=== PATIENT | female | born 1995 | race Caucasian/White ===

== ENCOUNTER 2020-10-09 22:42 | Inpatient (IN) | payer OTHER, SELFPAY ==
[2020-10-09 22:58] VITALS: BP 130/70; PULSE 100; RESP 18; TEMP 36.8; O2SAT 96; BMI 34.1
[2020-10-10] VITALS (26 sets, daily range): BP systolic 97–144; BP diastolic 42–82; PULSE 78–92; RESP 12–18; TEMP 6.1–43; O2SAT 87–99; BMI 33.2
--- NOTE | 2020-10-10 00:35 | HMH.EDNVD ---
ED Disposition Clinical Impression: Acute appendicitis Qualifiers: Acute appendicitis type: unspecified acute appendicitis type Qualified Code(s): K35.80 - Unspecified acute appendicitis Disposition: Admitted As Inpatient Condition on Discharge: Good Instructions: DI for Acute Abdominal Pain Referrals: Gino Villegas MD [Primary Care Provider] - - Critical Care Critical Care Time: No Attestation: On 10/09/20, the high probability of a clinically significant, sudden or life threatening deterioration of the following system(s) required my full and direct attention, intervention and personal management. The time I documented below is in addition to time spent performing reported procedures but includes the following listed in this critical care notation. Medical Decision Making - Medical Records Medical records reviewed: Yes: I reviewed the patient's medical records. - Markos Inquiry Pt receiving controlled substance: No Vital Signs: 10/09/20 22:58 Temperature 98.2 F Temperature Source Oral Pulse Rate [Right Brachial] 100 H Respiratory Rate 18 Blood Pressure [Right Arm] 130/70 Blood Pressure Mean [Right Arm] 90 Blood Pressure Source [Right Arm] Automatic Cuff Blood Pressure Position [Right Arm] Sitting 02 Sat by Pulse Oximetry 96 Oxygen Delivery Method Room Air - Lab Data Lab results reviewed: Yes: I reviewed the patient's lab results. Lab Results 10/10/20 00:53: Urine Color Yellow, Urine Appearance Sl cloudy, Urine pH 6.5, Ur Specific [place] 1.025, Urine Protein Trace, Urine Glucose (UA) Negative, Urine Ketones Negative, Urine Blood 2+, Urine Nitrate Negative, Urine Bilirubin Negative, Urine Urobilinogen 1.0, Ur Leukocyte Esterase Negative, Urine RBC 10-20, Ur Squamous Epith Cells 5-10, Amorphous Sediment 4+ 10/10/20 00:53: WBC 16.5 H, RBC 5.23, Hgb 15.0, Hct 45.5, MCV 87.0, MCH 28.7, MCHC 33.0, RDW 13.3, Plt Count 331, MPV 7.4, Neut % (Auto) 75.7, Lymph % (Auto) 18.5, [place] % (Auto) 3.6, Eos % (Auto) 1.9, Baso % (Auto) 0.4, Neut # (Auto) 12.5 H, Lymph # (Auto) 3.0, [place] # (Auto) 0.6, Eos # (Auto) 0.3, Baso # (Auto) 0.1, Total Counted 100, Neutrophils % (Manual) 71, Band Neutrophils % 3.0, Lymphocytes % (Manual) 21, Monocytes % (Manual) 2, Eosinophils % (Manual) 3, Platelet Estimate Normal, RBC Morphology Normal 10/10/20 00:53: Urine HCG, Qual Negative 10/10/20 00:53: Sodium 138, Potassium 4.1, Chloride 104, Carbon Dioxide 27, Anion Gap 11.1, BUN 7, Creatinine 0.40 L, Estimated Creat Clear 304 H, Estimated GFR 193, Est GFR ( Amer) 233, Glucose 95, Calcium 9.7, C-Reactive Protein 23.6 H, Amylase 68, Lipase 70 10/10/20 00:53: ESR 19 Result diagrams: 10/10/20 00:53 10/10/20 00:53 Orders (Tests/Meds): ORDERS Category Date Time Status CT abdomen wo con Stat Cat Scan 10/10/20 00:40 Taken - CT Data CT Scan: Abdomen, Pelvis Time Received: 02:[address] Reviewed: Yes: I have viewed the radiologist's interpretation Preliminary Findings: Abnormal (acute appendicitis) - Physician Consults Physician Consulted: deng Reason -: Admission Medical Decision Narrative: will need admit for acute appendicitis Nausea/Vomiting/Diarrhea HPI - General Chief complaint: Abdominal Pain Stated complaint: stomach and R Side pain Time Seen by Provider: 10/10/20 00:00 Mode of Arrival: Family Vehicle Source of Information: Patient, Medical Record Limitations: No Limitations Description of Symptoms (Recalled from ER Triage Doc. by RN): PT REPORTS HAVING HAD LEFT SIDE UPPER ABDOMINAL PAIN THAT RADATED TO RIGHT SIDE APPROXIMATELY 10 DAYS AGO THAT OCCURED A HANDFUL OF TIMES WITH NO ADDITIONAL SYMPTOMS. AFEBRILE, NO ISSUES WITH BOWELS OR BLADDER. DENIES N/V. DENIES ISSUES WITH APPETITE. DENIES VAGINAL ISSUES. NO CHANGES IN MEDS. - History of Present Illness HPI Narrative: abd pain over the last week with crampy abd pain w/o fever/ vomiting or diarrhea MD complaint: nausea, diarrhea, abdominal pain Onset (a
--- NOTE | 2020-10-10 00:40 | CT_ITS ---
PROCEDURE: CT ABDOMEN WO CON CLINICAL INDICATION: ABD PAIN Right-sided COMPARISON: No exams were available for comparison TECHNIQUE: Axial images obtained with sagittal and coronal reformats. All CT scans at the facility use one or more dose reduction, viz: automated exposure control, ma/kV adjustment per patient size (including targeted exams where dose is matched to indication, i.e. head), or iterative reconstruction technique. FINDINGS: Lower thorax: No acute finding ABDOMEN: Liver: No masses or biliary dilatation. Gallbladder: There is a 1.2 cm gallstone with peripheral calcification in a somewhat contracted gallbladder Pancreas: No masses or peripancreatic fluid collections. Spleen: unremarkable Adrenals: unremarkable Kidneys/ureters: unremarkable ABDOMEN & PELVIS: Stomach bowel: The stomach and duodenal sweep appear normal. The small bowel appears normal. There is prominent diffuse swelling of the appendix with a tiny appendicoliths. There is periappendiceal hazy inflammatory changes. There are couple of normal size lymph nodes adjacent to the cecum and appendix. Peritoneum: No abnormal fluid collections. No obvious inflammatory changes. No free air. Lymph nodes: Borderline size nodes right lower quadrant and appendix Vasculature: No evidence of abdominal aortic aneurysm. No retroperitoneal hemorrhage evident. Bones: No acute fracture PELVIS: Reproductive: The uterus is normal in size and in the midline. Bladder: Urinary bladder is decompressed, there is no free fluid in the pelvis. Appendix: Markedly abnormal as described above IMPRESSION: Findings consistent with acute appendicitis, with no evidence of perforation, cholelithiasis as well Dictated by: Dr. Sim Orosco MD 10/10/2020 09:54 Dr. Sim Orosco MD in [place] 10/10/2020 09:54
[2020-10-10 01:01] LABS: Microscopic, Urine URINE MICROSCOPIC (MICROSCOPIC)
[2020-10-10 01:04] LABS: Basophils # 0.1 K/mm3 (0-0.2); Basophils % 0.4 % (0.1-2.0); Eosinophils # 0.3 K/mm3 (0.0-0.4); Eosinophils % 1.9 % (0.1-12.0); Hematocrit 45.5 % (37.0-47.0); Lymphocytes % 18.5 % (10-50); Mean Corpuscular Hemoglobin 28.7 pg (27.0-31.2); Mean Platelet Volume 7.4 fl (7.4-10.4); Monocytes # 0.6 K/mm3 (0.1-1.0); Monocytes % 3.6 % (1.7-9.3); Neutrophils # 12.5 K/mm3 (1.8-7.8); Neutrophils % 75.7 % (37.0-80.0); Platelet Count 331 K/mm3 (142-424); Red Blood Count 5.23 M/mm3 (4.20-5.40); Red Cell Distribution Width 13.3 % (11.5-17.5); White Blood Count 16.5 K/mm3 (4.8-10.8)
[2020-10-10 01:06] LABS: Appearance,Urine SL CLOUDY (Clear); Bilirubin,Urine Negative (Negative); Blood, Urine 2+ (Negative); Color,Urine YELLOW (Yellow); Glucose,Urine (UA) Negative (Negative); Ketones,Urine Negative (Negative); Leukocyte Esterase,Urine Negative (Negative); Nitrate,Urine Negative (Negative); PH,Urine 6.5 (5.0-8.5); Protein,Urine TRACE (Negative); Specific Gravity, Urine 1.025 (1.005-1.030)
[2020-10-10 01:07] LABS: MANUAL DIFFERENTIAL MANUAL DIFFERENTIAL (MANUAL DIFF)
[2020-10-10 01:10] LABS: Amorphous Sediment,Urine 4+ /lpf; Urine Pregnancy, HCG Qual. Negative (Negative)
[2020-10-10 01:15] LABS: Chloride 104 mmol/L (98-107); Potassium 4.1 mmoL/L (3.5-5.1); Sodium 138 mmol/L (136-145)
[2020-10-10 01:18] LABS: Amylase 68 U/L (30-110); Anion Gap 11.1 mEq/L (5-15); Blood Urea Nitrogen 7 mg/dl (7-17); Carbon Dioxide 27 mmol/L (22.0-30.0); Creatinine Clearance Estimated 304 mL/min (50-200); Estimated Glomerular Filt Rate 193 ml/min (>60); GFR (African American) 233 ML/MIN (>60); Lipase 70 U/L (23-300)
[2020-10-10 01:19] LABS: Calcium 9.7 mg/dl (8.4-10.2); Glucose 95 mg/dl (74-100)
[2020-10-10 01:24] LABS: C-Reactive Protein 23.6 mg/L (0-4)
[2020-10-10 01:25] LABS: Eosinophils % 3 % (0-3); Lymphocytes % 21 % (10-50); Monocytes % 2 % (2-9); Neutrophils % 71 % (42-76); Platelet Estimate Normal; RBC Morphology Normal; Total Cells Counted 100
[2020-10-10 01:54] LABS: Erythrocyte Sedimentation Rate 19 mm/hr (0-20)
[2020-10-10 02:28] LABS: Adenovirus,PCR Not Detected (NotDetected); Bordetella Pertussis Not Detected (NotDetected); Chlamydophila Pneumoniae, PCR Not Detected (NotDetected); Coronavirus 19, PCR Not Detected (NotDetected); Coronavirus 229E Not Detected (NotDetected); Coronavirus NL63 Not Detected (NotDetected); Coronavirus OC43 Not Detected (NotDetected); Coronovirus HKU1,PCR Not Detected (NotDetected); Human Metapneumovirus Not Detected (NotDetected); Influenza A, PCR Not Detected (NotDetected); Influenza AH1, 2009 Not Detected (NotDetected); Influenza AH1, PCR Not Detected (NotDetected); Influenza AH3,PCR Not Detected (NotDetected); Influenza B, PCR Not Detected (NotDetected); Mycoplasma Pneumoniae, PCR Not Detected (NotDetected); Parainfluenza 1, PCR Not Detected (NotDetected); Parainfluenza 2, PCR Not Detected (NotDetected); Parainfluenza 3, PCR Not Detected (NotDetected); Parainfluenza 4, PCR Not Detected (NotDetected); Respiratory Syncytial Virus Not Detected (NotDetected); Rhinovirus/Enterovirus Not Detected (NotDetected)
--- NOTE | 2020-10-10 04:18 | PC.NURSE ---
PT ARRIVED TO FLOOR VIA W/C FROM ED W/STAFF AT [id number]
--- NOTE | 2020-10-10 05:44 | PC.NURSE ---
pt admitted with abd pain and appendicitis. pt requested to sleep some since she had been up all night after admission was completed. sx planned for today time unknown at this time. vss. no pain at this time. iv patent and infusing per order. call light in reach. will continue to monitor
--- NOTE | 2020-10-10 07:36 | HMH.HP ---
*Admission Date: 10/10/20 *Chief complaint: Abdominal pain *History of present illness: This is a 25-year-old female who presented to the emergency department overnight with increasing pain mostly in the right abdomen. She began having global/left-sided pain over a week ago that changed over the last few days . She was evaluated in the emergency department where she was found to be afebrile with stable normal vital signs. Her evaluation included a CT scan that showed changes consistent with appendicitis. HPI from emergency department evaluation is forwarded below. Forwarded from emergency department evaluation: Nausea/Vomiting/Diarrhea HPI - General Chief complaint: Abdominal Pain Stated complaint: stomach and R Side pain Time Seen by Provider: 10/10/20 00:00 Mode of Arrival: Family Vehicle Source of Information: Patient, Medical Record Limitations: No Limitations Description of Symptoms (Recalled from ER Triage Doc. by RN): PT REPORTS HAVING HAD LEFT SIDE UPPER ABDOMINAL PAIN THAT RADATED TO RIGHT SIDE APPROXIMATELY 10 DAYS AGO THAT OCCURED A HANDFUL OF TIMES WITH NO ADDITIONAL SYMPTOMS. AFEBRILE, NO ISSUES WITH BOWELS OR BLADDER. DENIES N/V. DENIES ISSUES WITH APPETITE. DENIES VAGINAL ISSUES. NO CHANGES IN MEDS. - History of Present Illness HPI Narrative: abd pain over the last week with crampy abd pain w/o fever/ vomiting or diarrhea MD complaint: nausea, diarrhea, abdominal pain Onset (ago): day(s) Associated Abdominal Pain: Yes Location of pain: diffuse Severity: moderate Quality: cramping Consistency: intermittent Associated symptoms: denies other symptoms [facility] History Medical History: Denies:: Diabetes Mellitus Type 1, Diabetes Mellitus Type 2 *Have you ever received a pneumonia vaccine?: No *Have you received a flu vaccine this season?: Yes Laterality Cases: Bilateral: Myringotomy (Ear Tubes) Other Surgeries: Yes: Other (d&c, wisdom teeth) Amputation: No Fractures: Yes - *Social History Smoking Status: Current every day smoker Tobacco Type: cigarettes # Packs/Day (cigarettes): 20 Alcohol Intake: never Alcohol Intake Frequency:: other Substance Use Type: denies use *Occupational Status:: employed Housing: house *Travel in the last 8 weeks: None Family Hx:: No significant family history Review of Systems - Constitutional Denies chills - Eyes Denies change in vision - ENT Denies difficulty swallowing - *Cardiovascular Denies chest pain - *Respiratory Denies cough - *Gastrointestinal Reports abdominal pain, Denies black, tarry stools - *Genitourinary Denies difficulty urinating - *Musculoskeletal Denies joint pain - Integumentary/Breasts Denies new lesions - *Neurologic Denies abnormal speech, Denies seizure-like activity - Psychiatric Denies anxiety - Endocrine Denies flushing - Hematologic/Lymphatic Denies easy bleeding - Allergic/Immunologic Denies wheezing Meds Home Medications Medication Instructions Recorded Confirmed Type etonogestrel 68 mg subdermal 68 mg SUBDERMAL NEEDED PRN 12/09/19 10/10/20 History implant Allergies Allergy/AdvReac Type Severity Reaction Status Date / Time No Known Allergies Allergy Verified 12/09/19 08:57 Exam Vital signs and Labs for Last 24 Hours: Temp Pulse Resp BP Pulse Ox 98.1 F 88 16 124/69 99 10/10/20 04:26 10/10/20 04:26 10/10/20 04:26 10/10/20 04:10/10/20 04:18 Laboratory Results - last 24 hr 10/10/20 00:53: Urine Color Yellow, Urine Appearance Sl cloudy, Urine pH 6.5, Ur Specific [place] 1.025, Urine Protein Trace, Urine Glucose (UA) Negative, Urine Ketones Negative, Urine Blood 2+, Urine Nitrate Negative, Urine Bilirubin Negative, Urine Urobilinogen 1.0, Ur Leukocyte Esterase Negative, Urine RBC 10-20, Ur Squamous Epith Cells 5-10, Amorphous Sediment 4+ 10/10/20 00:53: WBC 16.5 H, RBC 5.23, Hgb 15.0, Hct 45.5, MCV 87.0, MCH 28.7, MCHC 33.0, RDW 13.3, Plt Count 331, MPV 7.4, Neut %
--- NOTE | 2020-10-10 08:10 | HMH.ANESCL ---
[facility] Anesthesia Checklist - Patient Identification Patient Identification: Arm Band - Structural Data Admitted From: Home Planned Operative Procedure/s: Appendectomy Consent for Planned Operative Procedure(s) Verified: Yes - NPO Status Verified Time NPO: 00:00 - Airway Assessment C-Spine Mobility Assessed: Yes TMJ Mobility Assessed: Yes Dentition: Good Dentition - Neurological Assessment Level of Consciousness: Awake, Alert, Appropriate Hx Seizures: No Numbness or tingling in extremities: No - Anesthesia Plan Anesthesia Risk discussed: Yes Anesthesia Plan: Verified ASA Class: I Anesthesia Type: General [facility] History I have reviewed the patient's past medical history: Yes Medical History: Denies:: Diabetes Mellitus Type 1, Diabetes Mellitus Type 2 *Have you ever received a pneumonia vaccine?: No *Have you received a flu vaccine this season?: Yes Anesthesia experience/problems:: None Laterality Cases: Bilateral: Myringotomy (Ear Tubes) Other Surgeries: Yes: Other (d&c, wisdom teeth) Amputation: No Fractures: Yes - *Social History Smoking Status: Current every day smoker Tobacco Type: cigarettes # Packs/Day (cigarettes): 20 Alcohol Intake: never Alcohol Intake Frequency:: other Substance Use Type: denies use *Occupational Status:: employed Housing: house *Travel in the last 8 weeks: None Family Hx:: No significant family history
--- NOTE | 2020-10-10 08:37 | PC.NURSE ---
TO SURGERY AT 0832
--- NOTE | 2020-10-10 08:52 | PC.NURSE ---
at 0710, received call from dr. vilchis stating he wants to do lap appy on this pt around 8 am and requests anesthesia and or team to be notified.terry dunlap,martha marion ,and martha garvin notified.
--- NOTE | 2020-10-10 09:05 | PC.NURSE ---
Pt off floor still currently for surgery.
--- NOTE | 2020-10-10 10:32 | P.OP_ITS ---
Date of procedure: 10/10/20 Pre-op Diagnosis:: Appendicitis Post-op Diagnosis:: Suppurative appendicitis Procedure performed:: Laparoscopic appendectomy Surgeon:: Philip Singh MD Anesthesia: [facility] Estimated blood loss (mL): 25 Operative findings:: Severe suppurative appendicitis Entire appendix very inflamed and enlarged Inflammation along distal cecum Staple margin appeared viable Fusion of appendix and small bowel Fusion of appendix and colon Operative note:: After informed consent was obtained the patient was taken to the operating room and placed in the supine position. General anesthesia was induced and her abdomen was prepped and draped in a sterile fashion. After infiltration with local anesthetic an infraumbilical incision was made. A Veress needle was placed in position. The abdomen was insufflated. A 12 mm optical trocar was placed in position. Under direct visualization a 5 mm trocar was placed in the suprapubic position and an additional 5 mm trocar was placed in the left lower quadrant. The cecum, appendix, and small bowel were all inflamed. No definite perforation noted. Severe suppurative changes of the appendix with inflammation/dilation throughout were confirmed. The base of the appendix was inflamed and enlarged with concomitant inflammatory changes noted along the distal cecum. Dissection was extremely difficult as the tissue planes were obliterated secondary to the above-stated fusion of appendix to small bowel and colon. No obvious injury to the small bowel or colon was seen as careful e levation of the appendix was maintained. A combination of blunt dissection and harmonic dany was utilized to dissect through the mesoappendix and carefully separate the appendix from surrounding tissue. 2 small areas of sanguinous ooze were controlled with clips. The base of the appendix appeared viable although very inflamed/enlarged. An Endopath 45 stapling device was utilized to transect the appendix at its base. The staple margin appeared viable. No obvious sign of injury or bleeding noted. The appendix was placed in a retrieval bag and removed through the infraumbilical trocar site. The right lower quadrant and pelvis were thoroughly irrigated. No pockets of purulence were seen. The fascia at the infraumbilical trocar site was reapproximated with 0 Ethibond. All wounds were irrigated and skin was then closed with 4-0 Monocryl in a subcuticular fashion. Steri-Strips were applied. The patient's anesthetic agents were reversed and she was extubated prior to transfer to recovery. Condition: stable Disposition: PACU Specimens:: Appendix Complications:: No immediate
--- NOTE | 2020-10-10 10:44 | HMH.ANESI ---
[facility] Anesthesia Record Part I Intake, IV Amount: 1,200 Estimated blood loss (mL): 25 Urine output (mL): 150 Blood Pressure: 113/61 SaO2: 94 Pulse Rate: 90 Respiratory Rate: 14 Temperature: 97.3 F Patient is:: Drowsy Stable to PACU at:: 10:37
--- NOTE | 2020-10-10 11:18 | P.PN_ITS ---
[facility] Anesthesia Record Part II Discharge Time: 11:18 Destination: Medical Surgical Department PACU nurse assessment reviewed?: Yes Patient Condition:: Good Anesthesia Complications:: None Swallowing reflex intact?: Yes Cyanosis?: No Blood Pressure: 125/51 Pulse Rate: 88 Temperature: 94 F Mental Status: Alert & Oriented Pain level:: 0 Nausea and/or vomitting:: None Intake, IV Amount: 1,200
--- NOTE | 2020-10-10 11:23 | PC.NURSE ---
RETURNING TO FLOOR VIA STRETCHER AT 1123
[2020-10-10 11:33] LABS: Microscopic,Cath URINE MICROSCOPIC (MICROSCOPIC)
[2020-10-10 12:15] LABS: Appearance,Urine/Cath CLEAR (Clear); Bilirubin,Cath Negative (Negative); Blood, Urine/Cath 2+ (Negative); Color,Urine/Cath YELLOW (Yellow); Glucose,Urine/Cath (UA) Negative (Negative); Ketones,Urine/Cath Negative (Negative); Leukocyte Esterase,Cath Negative (Negative); Nitrate,Cath Negative (Negative); Protein,Urine/Cath 1+ (Negative); Specific Gravity, Urine/Cath 1.025 (1.005-1.030)
[2020-10-10 13:03] LABS: Amorphous Sediment,Ur/Cath 1+ /lpf; Mucus,Urine/Cath 1+ /lpf
--- NOTE | 2020-10-10 13:20 | P.CONPHA_ITS ---
[facility] Pharmacy VTE Monitoring - Patient Demographics Admission date: 10/10/20 Report Date: 10/10/20 Time: 13:20 Allergies/Adverse Reactions: Patient Allergies No Known Allergies Allergy (Verified 12/09/19 08:57) Height: 1.63 m Weight: 88.195 kg Patient Problems: Current Active Problems Acute appendicitis (Acute) - VTE Risk Labs: VTE Related Lab Results Hgb 15.0 g/dL (12.2-16.2) 10/10/20 00:53 Hct 45.5 % (37.0-47.0) 10/10/20 00:53 Plt Count 331 K/mm3 (142-424) 10/10/20 00:53 BUN 7 mg/dl (7-17) 10/10/20 00:53 Creatinine 0.40 mg/dl (0.52-1.04) L 10/10/20 00:53 Estimated Creat Clear 304 mL/min (50-200) H 10/10/20 00:53 Was VTE Risk Assessment Performed: Yes VTE Score: 0 VTE Risk Level: Very Low Risk - Prophylaxis Types of VTE Prophylaxis: TEDS Knee High (PATT HOSE ORDER PLACED) Location of Applied Device: Bilateral Lower Extremeties
--- NOTE | 2020-10-10 18:53 | PC.NURSE ---
Pt alert and oriented and able to make needs known. Pt has done well since surgery and been up to chair. Have educated on incentive spirometer. CB in reach. Surgical incisions (3) in place and cdi. 2 L NC applied post off when drowsy, pt back on ra at this time. Scuds applied to ble. S1,S2. Meds given per sep.
[2020-10-11] VITALS (7 sets, daily range): BP systolic 119–134; BP diastolic 51–71; PULSE 75–123; RESP 14–19; TEMP 36.8–39.2; O2SAT 92–98; BMI 34.0
--- NOTE | 2020-10-11 04:07 | PC.NURSE ---
Pt. has not c/o pain, n/v/d, soa or dizziness. Dsgs in place; c/d/i. Ambulates to br independently with gait and balance satisfactory.
[2020-10-11 06:28] LABS: Basophils % 0.1 % (0.1-2.0); Eosinophils % 0.1 % (0.1-12.0); Hematocrit 38.3 % (37.0-47.0); Hemoglobin 12.7 g/dL (12.2-16.2); Lymphocytes # 1.3 K/mm3 (0.7-4.5); Lymphocytes % 6.9 % (10-50); Mean Corpuscular HGB Conc 33.2 g/dL (31.8-35.4); Mean Corpuscular Hemoglobin 28.8 pg (27.0-31.2); Mean Platelet Volume 7.1 fl (7.4-10.4); Monocytes # 0.7 K/mm3 (0.1-1.0); Monocytes % 3.4 % (1.7-9.3); Neutrophils # 17.4 K/mm3 (1.8-7.8); Neutrophils % 89.5 % (37.0-80.0); Platelet Count 293 K/mm3 (142-424); Red Cell Distribution Width 13.3 % (11.5-17.5); White Blood Count 19.4 K/mm3 (4.8-10.8)
[2020-10-11 06:38] LABS: Anion Gap 9.9 mEq/L (5-15); Blood Urea Nitrogen 5 mg/dl (7-17); Carbon Dioxide 25 mmol/L (22.0-30.0); Chloride 105 mmol/L (98-107); Creatinine Clearance Estimated 243 mL/min (50-200); Estimated Glomerular Filt Rate 149 ml/min (>60); GFR (African American) 180 ML/MIN (>60); Glucose 102 mg/dl (74-100); Potassium 3.9 mmoL/L (3.5-5.1); Sodium 136 mmol/L (136-145)
[2020-10-11 07:37] LABS: MANUAL DIFFERENTIAL MANUAL DIFFERENTIAL (MANUAL DIFF)
[2020-10-11 07:41] LABS: Calcium 8.6 mg/dl (8.4-10.2)
--- NOTE | 2020-10-11 08:25 | HMH.GSPN ---
Subjective Patient reports: no new complaints, still having pain Progress Note: A&P (1) Suppurative appendicitis Status: Acute Assessment and plan: Overall, doing fairly well status post laparoscopic appendectomy. White blood cell count remains quite elevated. Continue Zosyn Full liquid diet Serial abdominal exams Exam Vital signs and Labs for Last 24 Hours: Temp Pulse Resp BP Pulse Ox 98.7 F 98 H 16 119/64 96 10/11/20 04:00 10/11/20 04:00 10/11/20 04:00 10/11/20 04:00 10/11/20 04:00 Laboratory Results - last 24 hr 10/10/20 09:00: Urine Color Yellow, Urine Appearance Clear, Urine pH 6.0, Ur Specific [place] 1.025, Urine Protein 1+, Urine Glucose (UA) Negative, Urine Ketones Negative, Urine Blood 2+, Urine Nitrate Negative, Urine Bilirubin Negative, Urine Urobilinogen 1.0, Ur Leukocyte Esterase Negative, Urine RBC 10-20, Urine WBC None, Ur Squamous Epith Cells 10-20, Urine Bacteria None 10/11/20 05:45: WBC 19.4 H, RBC 4.40, Hgb 12.7, Hct 38.3, MCV 87.0, MCH 28.8, MCHC 33.2, RDW 13.3, Plt Count 293, MPV 7.1 L, Neut % (Auto) 89.5 H, Lymph % (Auto) 6.9 L, [place] % (Auto) 3.4, Eos % (Auto) 0.1, Baso % (Auto) 0.1, Neut # (Auto) 17.4 H, Lymph # (Auto) 1.3, [place] # (Auto) 0.7, Eos # (Auto) 0.0, Baso # (Auto) 0.0 10/11/20 05:45: Sodium 136, Potassium 3.9, Chloride 105, Carbon Dioxide 25, Anion Gap 9.9, BUN 5 L D, Creatinine 0.50 L D, Estimated Creat Clear 243, Estimated GFR 149, Est GFR ( Amer) 180 D, Glucose 102 H, Calcium 8.6 D I & O for Last 24 hours: Intake & Output 10/08/20 10/09/20 10/10/20 10/11/20 11:59 11:59 11:59 11:59 Intake Total 2692 / 2692 1937 / 1937 Output Total 150 / 150 950 / 950 Balance 2542 / 2542 988 / 988 Weight 194 lb 7 oz 199 lb - Constitutional no acute distress - *Routine Respiratory Exam Absent: respiratory distress - *Routine Cardiovascular Exam Present: RRR - *Routine Abdominal Exam Present: soft, tenderness Comments: Dressings intact and dry. No cellulitis.
[2020-10-11 08:53] LABS: Lymphocytes % 17 % (10-50); Monocytes % 3 % (2-9); Neutrophils % 80 % (42-76); Platelet Estimate Normal; RBC Morphology Normal; Total Cells Counted 100
--- NOTE | 2020-10-11 16:38 | PC.NURSE ---
Addendum entered by Layla Graves RN 10/11/20 18:14: 1700 pt temp decreased to 99.4 orally. Pt has been ambulating the halls multiple times this shift w/ steady gait and balance. Pt has been using IS hourly this shift while awake. IS @ [id number] cc's Original Note: Pt has been pleasant the majority of this shift. At times, pt has been tearful d/t staying in the hospital. Pt has ran a fever of 102.5, PRN acetaminophen ordered per MD Wong. Pt has been tachy this shift as well w/ heart rate >125. Abdominal dressings remain CDI. No other acute changes or complaints at this time.
[2020-10-12] VITALS (7 sets, daily range): BP systolic 115–159; BP diastolic 68–79; PULSE 96–112; RESP 16–19; TEMP 36.8–38.4; O2SAT 92–99; BMI 34.4
--- NOTE | 2020-10-12 05:47 | PC.NURSE ---
Pt. denies dizziness and pain. Reported soa with activity and occasionally when lying flat. One episode of nausea noted; tx with zofran; effectiveness reported. Pt. tolerating blood administration well, receiving third unit at this time.
--- NOTE | 2020-10-12 05:50 | PC.NURSE ---
Pt. has not c/o pain, n/v/d, soa or dizziness this shift. Dsgs in place c/d/i. Pt. ambulates independently; tolerates well.
[2020-10-12 06:33] LABS: Basophils % 0.1 % (0.1-2.0); Eosinophils # 0.1 K/mm3 (0.0-0.4); Eosinophils % 0.3 % (0.1-12.0); Hemoglobin 12.3 g/dL (12.2-16.2); Lymphocytes # 0.9 K/mm3 (0.7-4.5); Lymphocytes % 6.2 % (10-50); Mean Corpuscular HGB Conc 33.2 g/dL (31.8-35.4); Mean Corpuscular Hemoglobin 28.7 pg (27.0-31.2); Mean Corpuscular Volume 86.5 fl (81-99); Mean Platelet Volume 7.4 fl (7.4-10.4); Monocytes # 0.5 K/mm3 (0.1-1.0); Monocytes % 3.3 % (1.7-9.3); Neutrophils # 12.5 K/mm3 (1.8-7.8); Neutrophils % 90.1 % (37.0-80.0); Platelet Count 228 K/mm3 (142-424); Red Blood Count 4.28 M/mm3 (4.20-5.40); Red Cell Distribution Width 13.4 % (11.5-17.5); White Blood Count 13.9 K/mm3 (4.8-10.8)
[2020-10-12 06:47] LABS: MANUAL DIFFERENTIAL MANUAL DIFFERENTIAL (MANUAL DIFF)
--- NOTE | 2020-10-12 06:52 | HMH.GSPN ---
Subjective Narrative: Patient states that she feels great . No issues. She did have elevated temperature to 102.5 ?F with some subsequent continued temperature elevation. She is given Tylenol for comfort and incentive spirometry encouraged. Progress Note: A&P (1) Suppurative appendicitis Status: Acute Assessment and Plan for All Diagnoses:: Continue IV antibiotics. White blood cell count is showing improvement to 13,000. Exam Vital signs and Labs for Last 24 Hours: Temp Pulse Resp BP Pulse Ox 99.7 F H 112 H 16 138/79 92 L 10/12/20 05:06 10/12/20 03:16 10/12/20 03:16 10/12/20 03:16 10/12/20 03:16 Laboratory Results - last 24 hr 10/11/20 05:45: WBC 19.4 H, RBC 4.40, Hgb 12.7, Hct 38.3, MCV 87.0, MCH 28.8, MCHC 33.2, RDW 13.3, Plt Count 293, MPV 7.1 L, Neut % (Auto) 89.5 H, Lymph % (Auto) 6.9 L, [place] % (Auto) 3.4, Eos % (Auto) 0.1, Baso % (Auto) 0.1, Neut # (Auto) 17.4 H, Lymph # (Auto) 1.3, [place] # (Auto) 0.7, Eos # (Auto) 0.0, Baso # (Auto) 0.0, Total Counted 100, Neutrophils % (Manual) 80 H, Lymphocytes % (Manual) 17, Monocytes % (Manual) 3, Platelet Estimate Normal, RBC Morphology Normal 10/11/20 05:45: Sodium 136, Potassium 3.9, Chloride 105, Carbon Dioxide 25, Anion Gap 9.9, BUN 5 L D, Creatinine 0.50 L D, Estimated Creat Clear 243, Estimated GFR 149, Est GFR ( Amer) 180 D, Glucose 102 H, Calcium 8.6 D 10/12/20 05:51: WBC 13.9 H D, RBC 4.28, Hgb 12.3, Hct 37.0, MCV 86.5, MCH 28.7, MCHC 33.2, RDW 13.4, Plt Count 228, MPV 7.4, Neut % (Auto) 90.1 H, Lymph % (Auto) 6.2 L, [place] % (Auto) 3.3, Eos % (Auto) 0.3, Baso % (Auto) 0.1, Neut # (Auto) 12.5 H, Lymph # (Auto) 0.9, [place] # (Auto) 0.5, Eos # (Auto) 0.1, Baso # (Auto) 0.0 I & O for Last 24 hours: Intake & Output 10/09/20 10/10/20 10/11/20 10/12/20 11:59 11:59 11:59 11:59 Intake Total 2692 / 2692 2538 / 2538 1080 / 1080 Output Total 150 / 150 950 / 950 Balance 2542 / 2542 1588 / 1588 1080 / 1080 Weight 194 lb 7 oz 199 lb 201 lb 8 oz - *Routine Abdominal Exam Present: soft Comments: Incisions clean without cellulitis.
[2020-10-12 08:40] LABS: Lymphocytes % 10 % (10-50); Monocytes % 3 % (2-9); Neutrophils % 87 % (42-76); Platelet Estimate Normal; RBC Morphology Normal; Total Cells Counted 100
--- NOTE | 2020-10-12 11:15 | PC.NURSE ---
Pt ambulating in the yee at this time.
--- NOTE | 2020-10-12 16:43 | PC.NURSE ---
Pt ambulating in the yee at this time.
--- NOTE | 2020-10-12 19:53 | PC.NURSE ---
Pt is A&Ox4. Lung sounds CTA. ABdomen remains distended and nontender upon palpation. Pt has not c/o any pain t/o this shift. VSS. Pt has been afebrile this shift. Pt has ambulated multiple times in the hallway this shift w/ steady gait and balance. No other acute changes or complaints at this time.
[2020-10-13 04:00] VITALS: BP 123/75; PULSE 90; RESP 18; TEMP 36.8; O2SAT 97
[2020-10-13 05:00] VITALS: BMI 33.8
[2020-10-13 06:35] LABS: Basophils % 0.2 % (0.1-2.0); Eosinophils # 0.1 K/mm3 (0.0-0.4); Eosinophils % 0.6 % (0.1-12.0); Hematocrit 36.7 % (37.0-47.0); Hemoglobin 11.9 g/dL (12.2-16.2); Lymphocytes # 1.3 K/mm3 (0.7-4.5); Lymphocytes % 15.2 % (10-50); Mean Corpuscular HGB Conc 32.4 g/dL (31.8-35.4); Mean Corpuscular Hemoglobin 28.3 pg (27.0-31.2); Mean Corpuscular Volume 87.6 fl (81-99); Monocytes # 0.5 K/mm3 (0.1-1.0); Monocytes % 6.1 % (1.7-9.3); Neutrophils # 6.5 K/mm3 (1.8-7.8); Neutrophils % 77.9 % (37.0-80.0); Platelet Count 217 K/mm3 (142-424); Red Cell Distribution Width 13.5 % (11.5-17.5); White Blood Count 8.4 K/mm3 (4.8-10.8)
--- NOTE | 2020-10-13 07:13 | P.PN_ITS ---
Subjective Patient reports: feels better, pain is less Progress Note: A&P (1) Suppurative appendicitis Status: Acute Assessment and plan: Overall, doing well status post laparoscopic appendectomy. Discharge home with close outpatient follow-up. She will complete a course of Augmentin secondary to the suppurative nature of her appendicitis. Exam Vital signs and Labs for Last 24 Hours: Temp Pulse Resp BP Pulse Ox 98.3 F 90 18 123/75 97 10/13/20 04:00 10/13/20 04:00 10/13/20 04:00 10/13/20 04:00 10/13/20 04:00 Laboratory Results - last 24 hr 10/12/20 05:51: Total Counted 100, Neutrophils % (Manual) 87 H, Lymphocytes % (Manual) 10, Monocytes % (Manual) 3, Platelet Estimate Normal, RBC Morphology Normal 10/13/20 06:18: WBC 8.4 D, RBC 4.20, Hgb 11.9 L, Hct 36.7 L, MCV 87.6, MCH 28.3, MCHC 32.4, RDW 13.5, Plt Count 217, MPV 7.0 L, Neut % (Auto) 77.9, Lymph % (Auto) 15.2, [place] % (Auto) 6.1, Eos % (Auto) 0.6, Baso % (Auto) 0.2, Neut # (Auto) 6.5, Lymph # (Auto) 1.3, [place] # (Auto) 0.5, Eos # (Auto) 0.1, Baso # (Auto) 0.0 I & O for Last 24 hours: Intake & Output 10/10/20 10/11/20 10/12/20 10/13/20 11:59 11:59 11:59 11:59 Intake Total 2692 / 2692 2538 / 2538 1320 / 1320 2029 / 2030 Output Total 150 / 150 950 / 950 801 / 801 Balance 2542 / 2542 1588 / 1588 1320 / 1320 1229 / 1229 Weight 194 lb 7 oz 199 lb 201 lb 8 oz 198 lb 2.988 oz - Constitutional no acute distress - *Routine Respiratory Exam Absent: respiratory distress - *Routine Cardiovascular Exam Present: RRR - *Routine Abdominal Exam Present: soft
--- NOTE | 2020-10-13 07:16 | HMH.DCSUM ---
General - General Admission date:: 10/10/20 Discharge date: 10/13/20 HPI HPI: This is a 25-year-old female who presented to the emergency department overnight with increasing pain mostly in the right abdomen. She began having global/left-sided pain over a week ago that changed over the last few days . She was evaluated in the emergency department where she was found to be afebrile with stable normal vital signs. Her evaluation included a CT scan that showed changes consistent with appendicitis. HPI from emergency department evaluation is forwarded below. Forwarded from emergency department evaluation: Nausea/Vomiting/Diarrhea HPI - General Chief complaint: Abdominal Pain Stated complaint: stomach and R Side pain Time Seen by Provider: 10/10/20 00:00 Mode of Arrival: Family Vehicle Source of Information: Patient, Medical Record Limitations: No Limitations Description of Symptoms (Recalled from ER Triage Doc. by RN): PT REPORTS HAVING HAD LEFT SIDE UPPER ABDOMINAL PAIN THAT RADATED TO RIGHT SIDE APPROXIMATELY 10 DAYS AGO THAT OCCURED A HANDFUL OF TIMES WITH NO ADDITIONAL SYMPTOMS. AFEBRILE, NO ISSUES WITH BOWELS OR BLADDER. DENIES N/V. DENIES ISSUES WITH APPETITE. DENIES VAGINAL ISSUES. NO CHANGES IN MEDS. - History of Present Illness HPI Narrative: abd pain over the last week with crampy abd pain w/o fever/ vomiting or diarrhea MD complaint: nausea, diarrhea, abdominal pain Onset (ago): day(s) Associated Abdominal Pain: Yes Location of pain: diffuse Severity: moderate Quality: cramping Consistency: intermittent Associated symptoms: denies other symptoms Hospital Course Hospital Course: The patient underwent laparoscopic appendectomy. Please see operative report for detail. She was found to have suppurative appendicitis with fairly severe cecal and small bowel inflammatory changes. She was maintained on Zosyn postoperatively secondary to the above findings. Her diet was slowly advanced. She was ambulating without difficulty. By postoperative day 3 she was deemed appropriate for discharge with close outpatient follow-up. At the time of discharge she was afebrile with stable and normal vital signs. Her white blood cell count was normal. She will complete a course of Augmentin secondary to the suppurative nature of her appendicitis. Objective Vital signs: Temp Pulse Resp BP Pulse Ox 98.3 F 90 18 123/75 97 10/13/20 04:00 10/13/20 04:00 10/13/20 04:00 10/13/20 04:00 10/13/20 04:00 no acute distress - *Routine HEENT Exam Head: Present: normocephalic Eye: Present: EOMI ENT: Present: mucous membranes moist - *Routine Neck Exam Present: full ROM - Routine Chest/Breast/Axilla Exam Chest wall: Absent: tenderness - *Routine Respiratory Exam Absent: respiratory distress - *Routine Cardiovascular Exam Present: RRR - *Routine Abdominal Exam Present: soft - *Routine Rectal Exam Patient deferred: visual exam - *Routine Exam Patient deferred: external exam - *Routine Extremities Exam Present: full ROM. Absent: cyanosis, clubbing, edema - Routine Back/Spine/Pelvis Exam Back/Spine: Present: full ROM - *Routine Skin Exam Absent: erythema - *Routine Neurological Exam Present: alert - Routine Psychiatric Exam Present: normal affect Results Labs on day of discharge: Labs from last 24 hours 10/13/20 10/12/20 06:18 05:51 WBC 8.4 D RBC 4.20 Hgb 11.9 L Hct 36.7 L MCV 87.6 MCH 28.3 MCHC 32.4 RDW 13.5 Plt Count 217 MPV 7.0 L Neut % (Auto) 77.9 Lymph % (Auto) 15.2 [place] % (Auto) 6.1 Eos % (Auto) 0.6 Baso % (Auto) 0.2 Neut # (Auto) 6.5 Lymph # (Auto) 1.3 [place] # (Auto) 0.5 Eos # (Auto) 0.1 Baso # (Auto) 0.0 Total Counted 100 Neutrophils % (Manual) 87 H Lymphocytes % (Manual) 10 Monocytes % (Manual) 3 Platelet Estimate Normal RBC Morphology Normal DS: Diagnosis - Discharge Diagnosis
[2020-10-13 08:00] VITALS: BP 124/61; PULSE 86; RESP 16; TEMP 37; O2SAT 96
== END 2020-10-13 08:45 | disposition home or self-care (01) | DRG 343 ==
LOC: ER 10-10 02:09 → 2ND 10-10 03:46
PROVIDERS: Surgery; Admitting Provider Surgery; Emergency Provider Emergency Medicine; PCP Family Medicine; Visit Provider Surgery
PROC: 0DTJ4ZZ Resection of Appendix, Percutaneous Endoscopic Approach (ICD-10-PCS; CPT 44970; principal; 2020-10-10 08:30)
DX: K35.80 Unspecified acute appendicitis (principal); F17.210 Nicotine dependence, cigarettes, uncomplicated
CPT/HCPCS: 44970; 36415; 74150; 80048; 81001; 81025; 82150; 83690; 85007; 85025; 85651; 86140; 87581; 87633; 87798; 88304; 88312; 88342; 96365; 99284; J0131; J2405; J2543

== ENCOUNTER → 2021-01-26 10:29 | Outpatient (CLI) | payer OTHER, SELFPAY ==
[2021-01-28 15:16] LABS: 5-HIAA, Urine 4.4 mg/L (Undefined)
[2021-02-04 09:31] LABS: Chromogranin A 24.7
== END ==
PROVIDERS: Visit Provider Surgery
DX: D3A.020 Benign carcinoid tumor of the appendix (principal)
CPT/HCPCS: 36415; 83497; 83520

== ENCOUNTER → 2021-07-27 17:20 | Outpatient (CLI) | payer OTHER, SELFPAY | PROVIDERS: Visit Provider Nurse Practitioner | DX: Z20.822 Contact with and (suspected) exposure to COVID-19 (principal) | CPT/HCPCS: C9803; U0003; U0005 ==

== ENCOUNTER 2022-11-29 08:07 | Emergency (ER) | payer OTHER, SELFPAY ==
[2022-11-29 08:18] VITALS: BP 143/91; PULSE 93; RESP 18; TEMP 36.9; O2SAT 98; BMI 35.0
--- NOTE | 2022-11-29 08:21 | EXP.UTC ---
Discharge Plan Disposition Patient Disposition: Home, Self-Care Condition: Good Prescriptions Prescriptions: New triamcinolone acetonide 0.1 % cream 1 applic topical BID Qty: 60 0RF Rx Instructions: apply to rash on back of legs methylprednisolone [Medrol (Alex)] 4 mg tablets,dose pack See Rx Instructions .Route .COMPLEX 6 Days Qty: 21 0RF Rx Instructions: taper pack; No Action Nexplanon 68 mg implant 68 mg SUBDERMAL NEEDED PRN (Reason: control) Referrals Follow up/Referrals: Bentley Nieto MD [Primary Care Provider] - See instructions Activity Restrictions/Add. Instructions Additional Instructions/Restrictions: Oral antihistamines may help with itching associated with rash Use topical cream as prescribed for rash Follow up with your Family Doctor or Dermatology if no improvement or any worsening of symptoms Return if needed Avoid the tanning bed Clinical Impressions Clinical Impression: Rash and nonspecific skin eruption Instructions Patient Instructions: DI for Atopic Dermatitis-Adult, DI for Rash Discharge ED Provider: Sosa Quinones [facility] HPI General Stated complaint: Rash on back of legs Mode of Arrival: Ambulatory Source of Information: Patient Limitations: No Limitations Time Seen by Provider: 11/29/22 08:22 Description of Symptoms (Recalled from Triage Doc. by RN): pt c/o a rash that gandhi. pt states this has been going on for 2wks after she used a tanning bed. HEENT Symptoms (Recalled from RN notes): No Resp Symptoms (Recalled from RN notes): No Skin Symptoms (Recalled from RN notes): Yes MS Symptoms (Recalled from RN notes): No Functional Status (Recalled from RN notes): wnl History of Present Illness Provider Complaint: Patient states that she has been laying in the tanning bed States that she developed a rash on her abdomen and back of legs shortly after starting to lay in the tanning bed and has continued for about 2 weeks States that the rash is itchy and when she scratches it sometimes it will burn Related Data Home Medications Medication Instructions Recorded Confirmed etonogestrel 68 mg subdermal 68 mg subdermal NEEDED PRN 12/09/19 05/08/22 implant (Nexplanon) control Previous Rx's Medication Instructions Recorded methylprednisolone 4 mg tablets in See Rx Instructions .Route 11/29/22 a dose pack (Medrol (Alex)) .COMPLEX 6 days #21 tabs triamcinolone acetonide 0.1 % 1 applic topical BID #60 grams 11/29/22 topical cream Allergies Allergy/AdvReac Type Severity Reaction Status Date / Time No Known Allergies Allergy Verified 11/29/22 08:21 Worker's Comp Is this a Worker's Comp case?: No [facility] Disclaimer: The information contained in this section may have been updated after the patient was seen, as this information can be updated by other users. Social History Smoking Status: Current every day smoker tobacco type: cigarettes packs per day: 20 second hand exposure: Yes alcohol intake: never substance use type: denies use current occupational status: employed Travel in the last 8 weeks: None housing: house ROS Obtained: Yes All systems reviewed & no additional complaints except as documented and Yes Systems reviewed as appropriate & no additional complaints except as documented Eyes Eyes: Reports system reviewed and no additional complaints, except as documented and Reports as per HPI ENT Ears, Nose, Mouth, and Throat: Reports system reviewed and no additional complaints, except as documented and Reports as per HPI Cardiovascular Cardiovascular: Reports system reviewed and no additional complaints, except as documented and Reports as per HPI Respiratory Respiratory: Reports system reviewed and no additional complaints, except as documented and Reports as per HPI Gastrointestinal Gastrointestingal: Reports system reviewed and no additional complaints
[2022-11-29 08:23] VITALS: BP 143/91; PULSE 93; RESP 18; TEMP 36.9
== END 2022-11-29 08:46 | disposition home or self-care (01) ==
PROVIDERS: Emergency Provider Nurse Practitioner; PCP Family Medicine
DX: R21 Rash and other nonspecific skin eruption (principal); F17.210 Nicotine dependence, cigarettes, uncomplicated
CPT/HCPCS: 99204; 99212; G0463

== ENCOUNTER 2023-03-14 08:35 | Emergency (ER) | payer OTHER, SELFPAY ==
[2023-03-14 09:23] VITALS: BP 105/76; PULSE 78; RESP 18; TEMP 36.8; O2SAT 99; BMI 34.5
--- NOTE | 2023-03-14 09:30 | EXP.UTC ---
Discharge Plan Disposition Patient Disposition: Home, Self-Care Condition: Good Prescriptions Prescriptions: New pseudoephedrine HCl [Sudafed 12 Hour] 120 mg tablet extended release 120 mg PO Q12H PRN (Reason: nasal congestion) Qty: 20 0RF No Action Nexplanon 68 mg implant 68 mg SUBDERMAL NEEDED PRN (Reason: control) triamcinolone acetonide 0.1 % cream 1 applic topical BID Qty: 60 0RF Rx Instructions: apply to rash on back of legs Referrals Follow up/Referrals: Bentley Nieto MD [Primary Care Provider] - See instructions Activity Restrictions/Add. Instructions Additional Instructions/Restrictions: *Monitor Temp, Over the counter Motrin or Tylenol as directed/as needed Tylenol every 4 hours and Motrin every 6 hours (as long as your family doctor has told you that you can take it) for fever or pain. and straight to ER if unable to lower temp less than 101.0 after medication given *Warm salt water gargles may help to soothe the throat *Throat Lozenges? *Warm fluids like tea with honey may help to soothe the throat? *Sleep elevated Over the counter sudafed may help with nasal congestion *Humidifier/Vaporizer *Flonase 2 sprays in each nostril daily but be aware that it may take 2-3 days before you notice improvement *Bromfed may cause drowsiness. Know how it effects you (your child) before driving, caring for small child, or sending your child to school. Not other antihistamines/allergy medications while taking bromfed Your throat swab was sent for culture. Those results are typically sent to your primary care. Be sure to follow up in 2-3 days with your family doctor/primary care physician if no improvement so they can review those result and treat if necessary. If you don?t have a primary care doctor, I recommend you get one but in the mean time, you will have to return to a walk in clinic Follow up IMMEDIATELY for new or worsening symptoms or no Noticeable improvement over the next 48-72 hours. 911 for difficulty breathing or swallowing Clinical Impressions Clinical Impression: Viral upper respiratory infection Instructions Patient Instructions: DI for Viral Upper Respiratory Infection -- Adult Discharge ED Provider: Sosa QuinonesH [facility] HPI General Stated complaint: sore throat, congestion, covid test Mode of Arrival: Ambulatory Source of Information: Patient Limitations: No Limitations Time Seen by Provider: 03/14/23 09:30 Description of Symptoms (Recalled from Triage Doc. by RN): Patient reports a stuffy nose since yesterday. HEENT Symptoms (Recalled from RN notes): Yes Resp Symptoms (Recalled from RN notes): No Skin Symptoms (Recalled from RN notes): No MS Symptoms (Recalled from RN notes): No Functional Status (Recalled from RN notes): wnl History of Present Illness Provider Complaint: Patient states that she has been having stuffy nose since yesterday Denies fever, denies chills states that at times her throat feels a little scratchy States that she hasnt been exposed to COVID that she knows of but wants to get tested Related Data Home Medications Medication Instructions Recorded Confirmed etonogestrel 68 mg subdermal 68 mg subdermal NEEDED PRN 12/09/19 01/18/23 implant (Nexplanon) control Previous Rx's Medication Instructions Recorded triamcinolone acetonide 0.1 % 1 applic topical BID #60 grams 11/29/22 topical cream pseudoephedrine HCl 120 mg 120 mg PO Q12H PRN nasal 03/14/23 tablet,extended release (Sudafed congestion #20 tabs 12 Hour) Allergies Allergy/AdvReac Type Severity Reaction Status Date / Time No Known Allergies Allergy Verified 01/18/23 08:40 Worker's Comp Is this a Worker's Comp case?: No [facility] Disclaimer: The information contained in this section may have been updated after the patient was seen, as this information can be updated by other users. Medical History (Updated
[2023-03-14 09:36] LABS: Coronavirus 19, PCR Not Detected (NotDetected); Influenza A, PCR Not Detected (NotDetected); Influenza B, PCR Not Detected (NotDetected)
[2023-03-14 10:55] VITALS: BP 105/76; PULSE 78; RESP 18; TEMP 36.8; O2SAT 99
== END 2023-03-14 10:55 | disposition home or self-care (01) ==
PROVIDERS: Emergency Provider Nurse Practitioner; PCP Family Medicine
DX: J06.9 Acute upper respiratory infection, unspecified (principal); B34.9 Viral infection, unspecified; F17.210 Nicotine dependence, cigarettes, uncomplicated
CPT/HCPCS: 87636; 99212; 99214; G0463

== ENCOUNTER 2023-12-14 16:28 | Emergency (ER) | payer OTHER, SELFPAY ==
[2023-12-14 16:41] VITALS: BP 135/71; PULSE 69; RESP 16; TEMP 36.7; O2SAT 98; BMI 34.3
--- NOTE | 2023-12-14 16:43 | XR_ITS ---
PROCEDURE INFORMATION: Exam: XR Right Foot Exam date and time: 12/14/2023 4:49 PM Age: 28 years old Clinical indication: Pain; Toes; Right; Additional info: Pain with walking TECHNIQUE: Imaging protocol: Radiologic exam of the right foot. Views: 3 or more views. COMPARISON: No relevant prior studies available. FINDINGS: Bones/joints: There is a dorsal calcaneal enthesophyte. The osseous structures appear intact with no evidence of acute fracture, dislocation, or malalignment. Joint spaces are preserved. No abnormal bone density or destructive lesions are noted. Soft tissues: Soft tissues appear unremarkable. IMPRESSION: At the time of imaging, there is no evidence for acute osseous abnormalities.
--- NOTE | 2023-12-14 16:44 | EXP.UTC ---
Discharge Plan Disposition Patient Disposition: Home, Self-Care Condition: Good Prescriptions Prescriptions: New ibuprofen [IBU] 800 mg tablet 800 mg PO Q8HP PRN (Reason: Moderate Pain) Qty: 30 0RF No Action Nexplanon 68 mg implant 68 mg SUBDERMAL NEEDED PRN (Reason: control) ciprofloxacin HCl 250 mg tablet 250 mg PO BID 3 Days Qty: 6 0RF Referrals Follow up/Referrals: Bentley Nieto MD [Primary Care Provider] - See instructions Tomasa Muñoz DPM [Staff Physician] - See instructions Activity Restrictions/Add. Instructions Additional Instructions/Restrictions: Rest the extremity, Elevate the extremity as tolerated while you are resting. Take ibuprofen for pain. I sent in a prescription to your pharmacy. Follow up with Dr. Muñoz (podiatry) I put in a referral but you need to call her office and schedule an appointment. Follow up with your regular doctor. GO TO THE ER FOR ANY WORSENING SYMPTOMS Clinical Impressions Clinical Impression: Acute pain of right foot Instructions Patient Instructions: DI for Metatarsalgia, DI for Foot Pain, Ibuprofen Discharge ED Provider: Heriberto Bonds [facility] General Stated complaint: Right foot pain no injury Mode of Arrival: Ambulatory Source of Information: Patient Limitations: No Limitations Time Seen by Provider: 12/14/23 16:44 HEENT Symptoms (Recalled from RN notes): No Resp Symptoms (Recalled from RN notes): No Skin Symptoms (Recalled from RN notes): No MS Symptoms (Recalled from RN notes): Yes Functional Status (Recalled from RN notes): wnl History of Present Illness Provider Complaint: Patient complaint of right foot pain when she walks or runs for 1 month. Related Data Home Medications Medication Instructions Recorded Confirmed etonogestrel 68 mg subdermal 68 mg subdermal NEEDED PRN 12/09/19 11/05/23 implant (Nexplanon) control Previous Rx's Medication Instructions Recorded ciprofloxacin HCl 250 mg tablet 250 mg PO BID 3 days #6 tabs 11/08/23 ibuprofen 800 mg tablet (IBU) 800 mg PO Q8HP PRN Moderate Pain 12/14/23 #30 tabs Allergies Allergy/AdvReac Type Severity Reaction Status Date / Time No Known Allergies Allergy Verified 11/05/23 13:21 Worker's Comp Is this a Worker's Comp case?: No [facility] Disclaimer: The information contained in this section may have been updated after the patient was seen, as this information can be updated by other users. Medical History (Updated 12/14/23 @ 17:21 by Heriberto Bonds APRN) Abdominal pain, acute No significant past medical history Surgical History History of placement of ear tubes H/O elbow surgery Hx of appendectomy Family History Father Hypertension Social History Smoking Status: Current every day smoker tobacco type: cigarettes packs per day: 20 second hand exposure: Yes alcohol intake: never substance use type: denies use current occupational status: employed Travel in the last 8 weeks: None housing: house ROS Obtained: Yes All systems reviewed & no additional complaints except as documented Constitutional Constitutional: Denies chills and Denies fever(s) Eyes Eyes: Denies eye discharge ENT Ears, Nose, Mouth, and Throat: Denies dizziness, Denies otalgia and Denies sore throat Cardiovascular Cardiovascular: Denies chest pain Respiratory Respiratory: Denies shortness of breath, Denies chest congestion, Denies cough, Denies stridor and Denies wheezing Gastrointestinal Gastrointestingal: Denies nausea or vomiting Musculoskeletal Musculoskeletal: Reports as per HPI Integumentary/Breasts Skin/Breast: Denies redness, Denies rash and Denies wounds Neurologic Neurologic: Denies dizziness and Denies paresthesias Allergic/Immunologic Allergic/Immunologic: Denies wheezing Physical Exam General General appearance: alert and in no apparent distress Head Head exam: atraumatic, normocephalic and normal inspection Eye Eye exam: Present normal appearance, PERRL and EOMI ENT ENT exam: Present normal exam, normal oropharynx, mucous membranes moist, TM's normal bilaterally and normal external ear exam Neck Neck exam: Present normal inspection, full ROM and trachea midline; Absent meningismus or lymphadenopathy Chest Chest inspection: Present normal inspection and symmetric chest wall rise; Absent tenderness Respiratory Respiratory exam: Present normal lung sounds bilaterally; Absent respiratory distress Cardiovascular Cardiovascular exam: Present regular rate and normal rhythm; Absent JVD Abdominal Exam Abdominal exam: Present soft and normal bowel sounds; Absent distention, tenderness or guarding Extremities Exam Extremities exam: Present normal capillary refill; Absent calf tenderness Expanded Lower Extremity Exam Right: Knee exam: Present normal inspection, full ROM and knee extension intact; Absent tenderness Lower leg exam: Present normal inspection, full ROM and Achilles tendon intact; Absent tenderness or Homans' sign Ankle exam: Present normal inspection and full ROM; Absent tenderness Foot/toe exam: Present normal inspection and full ROM; Absent tenderness Neurovascular/Tendon exam: Present normal capillary refill, normal 2-point discrimination and normal fine/light touch; Absent pulse deficit, motor deficit, sensory deficit, tendon deficit, extremity cold to touch or pallor Gait: observed and normal Back Exam Back exam: Present normal inspection; Absent tenderness Neurological Exam Neurological exam: Present alert and oriented X3 Psychiatric Psychiatric exam: Present normal affect and normal mood Skin Skin exam: Present warm, dry, intact and normal color Lymphatic Lymphatic Findings: no adenopathy Medical Decision Making Medical Records Medical records reviewed: No I reviewed the patient's medical records. Markos Inquiry Pt receiving controlled substance: No Vital Signs: 12/14/23 16:41 Temperature 98.0 F Temperature Source Oral Pulse Rate [Radial] 69 Respiratory Rate 16 Blood Pressure [Right Arm] 135/71 Blood Pressure Mean [Right Arm] 92 Blood Pressure Source [Right Arm] Automatic Cuff Blood Pressure Position [Right Arm] Sitting 02 Sat by Pulse Oximetry 98 Oxygen Delivery Method Room Air Orders (Tests/Meds): ORDERS Category Date Time Status Foot XR right minimum 3 views [XR foot RT min 3V] Stat Exams 12/14/23 16:43 Ordered
[2023-12-14 17:28] VITALS: BP 135/71; PULSE 69; RESP 16; TEMP 36.7; O2SAT 98
== END 2023-12-14 17:29 | disposition home or self-care (01) ==
PROVIDERS: Emergency Provider Nurse Practitioner Family; PCP Family Medicine
DX: M79.671 Pain in right foot (principal)
CPT/HCPCS: 73630; 99212; 99214; G0463

== ENCOUNTER 2024-09-29 08:02 | Outpatient (CLI) | payer OTHER, SELFPAY ==
--- NOTE | 2024-09-29 08:02 | US_ITS ---
PROCEDURE: US TRANSVAGINAL CLINICAL INDICATION: pelvic pain COMPARISON: CT ABDPELW/O CT ABD PELVIS W/O CONTRAST from 01/22/[address] ABDOMEN WO CON from 10/10/2020 FINDINGS: Transvaginal sonographic images of the pelvis were obtained. UTERUS: 7.2cm x 5.2cmx 4.2cm anteverted with a combined endometrial thickness of 10.5mm. LEFT OVARY: 5.0cmx2.2cmx2.5cm with a volume of 14.3ml. Within the left ovary there is a follicle measuring 2.3 cm x 3.1 cm x 3.2 cm. The follicle has an irregular appearance and could be a collapsing corpus luteum. RIGHT OVARY: 3.1cmx 1.2cmx 1.7 cm with a volume of 3.3ml. There are several small follicles in the right ovary. Both ovaries are seen and appear normal. Doppler flow to both ovaries are seen. There is no fluid in the cul-de-sac. IMPRESSION: 1. Anteverted uterus normal in shape and size. The endometrium appears normal and measures 10.5 mm. 2. Both ovaries are seen and appear normal. Within the left ovary there is a follicle measuring 3.2 cm that has an irregular appearance and could be a collapsing corpus luteum. 3. No fluid in the cul-de-sac. Dictated by: Everardo Hoyt MD 09/29/2024 13:53 Everardo Hoyt MD in OV 09/29/2024 13:53
== END 2024-09-29 23:59 | disposition home or self-care (01) ==
LOC: RAD 08:02
PROVIDERS: PCP Family Medicine; Visit Provider Obstetrics & Gynecology
DX: R10.2 Pelvic and perineal pain (principal)
CPT/HCPCS: 76830

== ENCOUNTER 2025-02-25 11:54 | Outpatient (CLI) | payer OTHER, SELFPAY | END 2025-02-25 23:59 | disposition home or self-care (01) | LOC: LAB.DROPOF 02-27 11:55 | PROVIDERS: PCP Family Medicine; Visit Provider Obstetrics & Gynecology | DX: R10.2 Pelvic and perineal pain (principal) | CPT/HCPCS: 87086; 87088; 87186 ==

== ENCOUNTER 2025-04-15 09:08 | Outpatient (CLI) | payer OTHER, SELFPAY ==
--- NOTE | 2025-04-15 09:13 | XR_ITS ---
FINAL REPORT CLINICAL HISTORY: PAIN COMPARISON: None FINDINGS: Cervical spine 3 views of the cervical spine were obtained. There is no acute fracture. There is mild reversal of the cervical lordosis. There is no malalignment. The vertebrae are normal in height. The disc spaces are preserved. IMPRESSION: No acute process. Thoracic spine 3 views of the thoracic spine were obtained. There is no acute fracture. There is no malalignment. The vertebrae are normal in height. The disc spaces are preserved. IMPRESSION: No acute process. Reviewed, Interpreted and Dictated by Norbert Rodríguez MD Transcribed by Mariann Concepcion Authenticated and [facility]
== END 2025-04-15 23:59 | disposition home or self-care (01) ==
LOC: RAD 09:10
PROVIDERS: PCP Family Medicine; Visit Provider Nurse Practitioner
DX: M54.9 Dorsalgia, unspecified (principal)
CPT/HCPCS: 72083

== ENCOUNTER 2025-04-16 14:00 | Outpatient (CLI) | payer OTHER, SELFPAY | END 2025-04-16 23:59 | disposition home or self-care (01) | LOC: LAB.DROPOF 04-17 10:24 | PROVIDERS: PCP Obstetrics & Gynecology; Visit Provider Obstetrics & Gynecology | DX: R39.9 Unspecified symptoms and signs involving the genitourinary system (principal) | CPT/HCPCS: 87086 ==

== ENCOUNTER 2025-05-10 17:49 | Emergency (ER) | payer OTHER, SELFPAY ==
[2025-05-10 17:57] VITALS: BP 127/74; PULSE 87; RESP 15; TEMP 36.9; O2SAT 96; BMI 34.2
[2025-05-10 18:23] LABS: Hematocrit 42.8 % (37.0-47.0); Hemoglobin 14.6 g/dL (12.2-16.2); Immature Granulocytes % 0.1 %; Mean Corpuscular HGB Conc 34.1 g/dL (31.8-35.4); Mean Corpuscular Hemoglobin 30.5 pg (27.0-31.2); Mean Corpuscular Volume 89.4 fl (81-99); Nucleated Red Blood Cells % 0 %; Platelet Count 269 K/mm3 (142-424); Red Blood Count 4.79 M/mm3 (4.20-5.40); Red Cell Distribution Width-SD 41.9 fL; White Blood Count 13.5 K/mm3 (4.8-10.8)
--- NOTE | 2025-05-10 18:31 | HMH.EDGENADL ---
Discharge Plan Disposition Patient Disposition: Home, Self-Care Condition: Good Prescriptions Prescriptions: New cefdinir 300 mg capsule 300 mg PO BID 7 Days Qty: 14 0RF ketorolac 10 mg tablet 10 mg PO Q8H PRN (Reason: pain) 1 Days Qty: 15 0RF No Action Nexplanon 68 mg implant 68 mg SUBDERMAL NEEDED PRN (Reason: control) Referrals Follow up/Referrals: Bentley Nieto MD [Primary Care Provider, Medical] - See instructions Activity Restrictions/Add. Instructions Additional Instructions/Restrictions: You can take Toradol in addition to Tylenol at home for pain control if needed. Do not take the Toradol in addition to ibuprofen or other NSAIDs. He is take the cefdinir. You will be called tomorrow by Dr. Santo Benitez to set up a stent placement for your left kidney stone. Return to the emergency department if you develop fevers inability to urinate or if you have severe uncontrolled pain. Clinical Impressions Clinical Impression: Urinary tract obstruction by kidney stone Instructions Patient Instructions: DI for Urinary Tract Infection (UTI), DI for Urinary Tract Infection in Children Print Language Print Language: Kinyarwanda Discharge ED Provider: Rosanne Loya General Adult HPI General Chief complaint: Urogenital-Female Stated complaint: lower back pain Time Seen by Provider: 05/10/25 18:15 Mode of Arrival: Ambulatory Source of Information: Patient Description of Symptoms (Recalled from ER Triage Doc. by RN): patient states she has had intermittent lower left flank pain since apr 16, she went to urgent care and they checkd urine it had blood in it. History of Present Illness HPI narrative: Patient is a 29-year-old female with no significant past medical history who presents to the emergency department with intermittent left-sided flank pain. Patient states that has been present for 1 month intermittent in nature not worse with anything in particular. Patient states that has been worse over the last day. Patient denies any fevers. Patient denies any urinary symptoms. Patient denies any dysuria hematuria or frequency. Patient denies any vomiting. Patient denies any abdominal pain. Patient denies any diarrhea. Patient denies any prior surgeries. Patient does not take any daily medications. Related Data Home Medications ?Medication ?Instructions ?Recorded ?Confirmed etonogestrel 68 mg subdermal 68 mg subdermal NEEDED PRN 12/09/19 05/10/25 implant (Nexplanon) control Previous Rx's ?Medication ?Instructions ?Recorded cefdinir 300 mg capsule 300 mg PO BID 7 days #14 caps 05/10/25 ketorolac 10 mg tablet 10 mg PO Q8H PRN pain 1 day #15 05/10/25 tabs Allergies Allergy/AdvReac Type Severity Reaction Status Date / Time No Known Allergies Allergy Verified 05/10/25 17:25 [facility] Disclaimer: The information contained in this section may have been updated after the patient was seen, as this information can be updated by other users. Medical History (Updated 05/10/25 @ 22:03 by Rosanne Loya DO) Flank pain Urinary tract infection symptoms Request for sterilization Vulvar lesion Acute pelvic pain, female Abdominal pain, acute Surgical History [place] teeth extracted History of D&C History of placement of ear tubes H/O elbow surgery Hx of appendectomy Family History Father Hypertension Social History Smoking Status: Current every day smoker tobacco type: cigarettes packs per day: 1 second hand exposure: Yes alcohol intake: never substance use type: denies use current occupational status: employed Travel in the last 8 weeks?: None housing: house Have you lived/traveled outside [place] in past 30 days?: No Contact w/someone who lives/traveled outside US past 30 days?: No Exposure to someone with infectious disease in past 14 days?: No Do you have a fever (greater than 100.4 F or 38 C)?: No Have you tested positive for COVID-19?: No Exposed to someone with COVID-19 in past 14 days?: No Do you have a sore throat?: No Do you have a cough?: No Do you have any weakness?: No Do you have any diarrhea?: No Are you experiencing any unusual bleeding?: No Do you have any muscle aches/pain?: Yes Do you have any abdominal pain?: No Are you experiencing loss of taste or smell?: No Other Medical History Have you received the Flu Vaccine for this season: No Have you received the Pneumonia Vaccine: No ROS Obtained: Yes All systems reviewed & no additional complaints except as documented and Yes Systems reviewed as appropriate & no additional complaints except as documented Physical Exam General General appearance: alert and in no apparent distress Head Head exam: atraumatic, normocephalic and normal inspection Eye Eye exam: Present normal appearance, PERRL and EOMI; Absent scleral icterus ENT ENT exam: Present normal exam and normal external ear exam Neck Neck exam: Present normal inspection and full ROM Chest Chest inspection: Present normal inspection and symmetric chest wall rise Respiratory Respiratory exam: Present normal lung sounds bilaterally; Absent respiratory distress or wheezes Cardiovascular Cardiovascular exam: Present regular rate, normal rhythm and normal heart sounds Abdominal Exam Abdominal exam: Present soft, distention, tenderness and other (No CVA tenderness); Absent guarding or rebound Extremities Exam Extremities exam: Present normal inspection and full ROM Back Exam Back exam: Present normal inspection and full ROM Neurological Exam Neurological exam: Present alert and oriented X3 Psychiatric Psychiatric exam: Present normal affect and normal mood Skin Skin exam: Present warm and dry Medical Decision Making Medical Records Medical records reviewed: Yes I reviewed the patient's medical records. Screening: Per USPSTF and CDC recommendations, given the prevalence of disease in our region, it is our hospital?s policy to screen for HIV and viral Hepatitis for all patients aged 18 and over and those with ongoing risk factors. Markos Inquiry Pt receiving controlled substance: No Vital Signs: 05/10/25 17:57 05/10/25 22:21 Temperature 98.4 F 98.1 F Temperature Source Oral Temporal Artery Scan Pulse Rate 78 Pulse Rate [Right Radial] 87 Respiratory Rate 15 18 Blood Pressure 131/78 Blood Pressure [Right Arm] 127/74 Blood Pressure Mean [Right Arm] 91 Blood Pressure Source Automatic Cuff Blood Pressure Source [Right Arm] Automatic Cuff Blood Pressure Position Sitting Blood Pressure Position [Right Arm] Supine 02 Sat by Pulse Oximetry 96 Oxygen Delivery Method Room Air Room Air Lab Data Lab results reviewed: Yes I reviewed the patient's lab results. Lab Results 05/10/25 17:30: Urine Color Yellow, Urine Appearance Clear, Urine pH 6.0, Ur Specific [place] 1.025, Urine Protein 1+ A, Urine Glucose (UA) Negative, Urine Ketones Trace, Urine Blood 2+ A, Urine Nitrate Negative, Urine Bilirubin Negative, Urine Urobilinogen 0.2, Ur Leukocyte Esterase Negative, Urine RBC Occasional, Urine WBC 5-10, Ur Squamous Epith Cells None, Uric Acid Crystals 1+, Urine Bacteria 1+ 05/10/25 18:15: WBC 13.5 H, RBC 4.79, Hgb 14.6, Hct 42.8, MCV 89.4, MCH 30.5, MCHC 34.1, RDW 12.7, Plt Count 269, MPV 9.7, Neut % (Auto) 72.3, Lymph % (Auto) 18.3, [place] % (Auto) 6.5, Eos % (Auto) 2.4, Baso % (Auto) 0.4, Neut # (Auto) 9.7 H, Lymph # (Auto) 2.5, [place] # (Auto) 0.9, Eos # (Auto) 0.3, Baso # (Auto) 0.1, Sodium 137, Potassium 3.8, Chloride 107, Carbon Dioxide 25, Anion Gap 8.8, BUN 15, Creatinine 0.70, Estimated Creat Clear 162, Estimated GFR 98, Est GFR ( Amer) 119, Glucose 138 H, Calcium 9.3, Total Bilirubin 0.3, AST 23, ALT 20, Alkaline Phosphatase 67, Total Protein 7.0, Albumin 3.3 L, Globulin 3.7 H, Albumin/Globulin Ratio 0.9 L, Serum HCG, Qual Negative, HCV Ab TAHIR w/Rflx PCR Qn Negative 05/10/25 18:25: HIV Ag/Ab Combo Qual Negative 05/10/25 18:15 05/10/25 18:15 Orders (Tests/Meds): ED MEDICATIONS Discontinued Medications Generic Name Dose Route Start Last Admin Trade Name Freq PRN Reason Stop Dose Admin Acetaminophen 1,000 mg 05/10/25 18:34 05/10/25 18:59 Acetaminophen 500mg Tab PO 05/10/25 18:35 1,000 mg ONCE ONE Administration Ceftriaxone Sodium 2 gm/ 100 mls @ 200 mls/hr 05/10/25 21:30 05/10/25 22:05 Sodium Chloride IV 05/10/25 21:59 Infused ONCE ONE Infusion Iopamidol 75 ml 05/10/25 19:02 05/10/25 19:03 Iopamidol-370 (76%);100ml Bottle IV 05/10/25 19:03 75 ml ONCE ONE Administration Sodium Chloride 10 ml 05/10/25 19:02 05/10/25 19:03 Sodium Chloride 0.9% 10ml Syr (Rad Only) IV 05/10/25 19:03 10 ml ONCE ONE Administration ORDERS Category Date Time Status CT abdomen pelvis w con Stat Cat Scan 05/10/25 18:32 Completed CMP [Comprehensive Metabolic Panel] Stat Lab 05/10/25 18:15 Completed Complete Blood Count Auto Diff Stat Lab 05/10/25 18:15 Completed HCG Qualitative, Serum Stat Lab 05/10/25 18:15 Completed HIV Combo Stat Lab 05/10/25 18:25 Completed Hepatitis C Ab Qual. W/ RFX Stat Lab 05/10/25 18:15 Completed UA [Urinalysis and Microscopic] Stat Lab 05/10/25 17:30 Completed Urine Culture Stat Micro 05/10/25 17:30 Completed Medical Decision Narrative: Patient is a 29-year-old female with no significant past medical history who presented to the emergency department with concern for intermittent left flank pain for the last month. On arrival, patient was hemodynamically stable with unremarkable vital signs. Differential includes but not limited to: Urinary tract infection, pyelonephritis, nephrolithiasis, electrolyte abnormalities, musculoskeletal spasm, amongst others. Patient's labs were reviewed and interpreted by myself: CBC showed mild leukocytosis of 13, hemoglobin stable. CMP unremarkable. UA showed 5-10 white blood cells, 1+ bacteria negative nitrates negative leuk esterase. CT scan was reviewed and interpreted by myself and showed 1.7 cm obstructing stone at the UPJ with moderate to severe left hydro with some perinephric edema. Although patient did not have a urinary tract infection given patient's significant large obstructing stone I did discuss the case with [facility] urologist Dr. Benitez. He stated that he did not feel the patient needed emergent transfer to this evening. He recommended that if patient's pain was well-controlled which it was the patient was stable and appropriate for discharge with outpatient workup. Patient was sent with oxycodone as well as antibiotics per urologist request. Patient was notified that we should be called tomorrow for outpatient workup. Patient was comfortable with this plan and patient was otherwise discharged home in stable condition. Critical Care Critical Care Time Critical Care Time: No
--- NOTE | 2025-05-10 18:32 | CT_ITS ---
PROCEDURE INFORMATION: Exam: CT Abdomen And Pelvis With Contrast Exam date and time: 05/10/2025 7:00 PM Age: 29 years old Clinical indication: Abdominal pain; Additional info: Left flank pain TECHNIQUE: Imaging protocol: Computed tomography of the abdomen and pelvis with contrast. Total images: 324 Radiation optimization: All CT scans at this facility use at least one of these dose optimization techniques: automated exposure control; mA and/or kV adjustment per patient size (includes targeted exams where dose is matched to clinical indication); or iterative reconstruction. Contrast material: ISOVUE; Contrast volume: 75 ml; Contrast route: IV; COMPARISON: CT ABDOMEN WO CON 10/10/2020 1:15 AM FINDINGS: Lungs: Lung bases are clear. Heart: Normal heart size. Liver: Mild hepatomegaly at 20 cm. Otherwise, unremarkable liver. Gallbladder and biliary ducts: Cholelithiasis without secondary signs of acute cholecystitis. Pancreas: Normal. No ductal dilation. Spleen: Normal. No splenomegaly. Adrenal glands: Normal. No mass. Kidneys and ureters: 17 mm oval obstructing calculus at the left UPJ. Moderate to severe left hydronephrosis. Punctate lower pole left intrarenal calculus. Delayed left nephrogram. Left perinephric edema and trace perinephric fluid. Unremarkable right kidney. No distal ureteral stones. Stomach and bowel: Unremarkable stomach. No ileus or bowel obstruction. Unremarkable small bowel. Unremarkable colon and rectum. Appendix: Status post appendectomy. Intraperitoneal space: Unremarkable. No free air. No significant fluid collection. Vasculature: Nonaneurysmal abdominal aorta. Major abdominal vessels enhance appropriately. Pelvic phleboliths. Lymph nodes: Unremarkable. No enlarged lymph nodes. Urinary bladder: Collapsed bladder. Reproductive: 4 cm left ovarian cyst. Unremarkable uterus and right ovary. Bones/joints: Unremarkable. No acute fracture. Soft tissues: Umbilical piercing. IMPRESSION: 1. Moderate to severe left hydronephrosis secondary to a 17 mm oval obstructing stone at the UPJ. 2. Left perinephric edema and trace left perinephric fluid from obstructive uropathy. 3. Additional punctate left intrarenal calculi 4. Cholelithiasis 5. 4 cm left ovarian cyst.
[2025-05-10 18:38] LABS: Albumin Level 3.3 g/dl (3.5-5.0); Albumin/Globulin Ratio 0.9 (1.1-1.8); Blood Urea Nitrogen 15 mg/dl (7-17); Carbon Dioxide 25 mmol/L (22.0-30.0); Chloride 107 mmol/L (98-107); Creatinine Clearance Estimated 162 mL/min (50-200); Creatinine,Serum 0.70 mg/dl (0.52-1.04); Estimated Glomerular Filt Rate 98 ml/min (>60); GFR (African American) 119 ML/MIN (>60); Globulin 3.7 g/dL (1.3-3.2); Total Protein,Serum 7.0 g/dl (6.3-8.2)
[2025-05-10 18:39] LABS: Alanine Aminotransferase 20 U/L (12-78); Alkaline Phosphatase 67 U/L (38-126); Anion Gap 8.8 mEq/L (5-15); Aspartate Amino Transferase 23 U/L (14-36); Bilirubin,Total 0.3 mg/dl (0.2-1.3); Calcium 9.3 mg/dl (8.4-10.2); Glucose 138 mg/dl (74-100); Potassium 3.8 mmoL/L (3.5-5.1); Sodium 137 mmol/L (136-145)
[2025-05-10 18:43] LABS: HCG Qualitative, Serum Negative (Negative)
[2025-05-10] MEDS: ACETAMINOPHEN 500MG TAB 1000 MG PO (18:59)
[2025-05-10] MEDS: SODIUM CHLORIDE 0.9% 10ML SYR (RAD ONLY) 10 ML IV (19:03)
[2025-05-10] MEDS: IOPAMIDOL-370 (76%);100ML BOTTLE 75 ML IV (19:03)
[2025-05-10 20:17] LABS: Hepatitis C Ab Qual. W/ RFX NEGATIVE (Negative)
[2025-05-10 20:26] LABS: Microscopic, Urine URINE MICROSCOPIC (MICROSCOPIC)
--- NOTE | 2025-05-10 20:30 | PC.NURSE ---
Called [facility] for a transfer. stated they would call back
[2025-05-10 20:34] LABS: Bilirubin,Urine Negative (Negative); Color,Urine YELLOW (Yellow); Glucose,Urine (UA) Negative (Negative); Ketones,Urine TRACE (Negative); Leukocyte Esterase,Urine Negative (Negative); PH,Urine 6.0 (5.0-8.5); Protein,Urine 1+ (Negative); Specific Gravity, Urine 1.025 (1.005-1.030); Urobilinogen,Urine 0.2 EU/dl (0.2)
[2025-05-10 21:03] LABS: Bacteria,Urine 1+ /lpf; RBC,Urine Occasional #/hpf (0-3); Uric Acid Crystals,Urine 1+ /lpf
--- NOTE | 2025-05-10 21:13 | PC.NURSE ---
No urology at [place]. Will check [facility]
[2025-05-10 22:21] VITALS: BP 131/78; PULSE 78; RESP 18; TEMP 36.7; O2SAT 98
== END 2025-05-10 22:22 | disposition home or self-care (01) ==
PROVIDERS: Emergency Provider Student in an Organized Health Care Education/Training Program; PCP Family Medicine
DX: N13.0 Hydronephrosis with ureteropelvic junction obstruction (principal); R10.A2 Flank pain, left side; N20.0 Calculus of kidney; R60.0 Localized edema; M54.59 Other low back pain
CPT/HCPCS: 74177; 80053; 81001; 84703; 85025; 86803; 87086; 87389; 96365; 99284; J0696; Q9967

== ENCOUNTER 2025-05-16 09:26 | Emergency (ER) | payer OTHER, SELFPAY ==
--- OUTSIDE RECORDS SUMMARY | 2025-05-14 10:49 | XMS_ITS | Continuity of Care Document ---
Author Organization [facility] Phone Care Team Providers Care Bio Medical Technician Name Role Phone CARLY BLAKE Primary Care YONI TERRELL Admitting YONI TERRELL Primary Attending YONI TERRELL Surgeon YONI TERRELL Unavailable ALLERGIES AND ADVERSE REACTIONS ALLERGIES AND ADVERSE REACTIONS Code System Allergy Substance Adverse Reaction Date Reaction (Severity) Comment Status Reported By Updated By No Known Allergies [id number] on May 12, 2025 7:34:54 PM UTC ASSESSMENTS Kidney stone ; FAMILY HISTORY RELATION: Father Status: LIVING SNOMED-CT Diagnosis Age At Onset Information not available RELATION: Mother Status: LIVING SNOMED-CT Diagnosis Age At Onset Information not available PROBLEMS PATIENT PROBLEMS Code Description/Comments Category Status Upda patt By [id number] Kidney stone active [id number] on O ct2024 8:01:47 PM UTC RESULTS Patient: IAN ZHAO Date of : 1995 1 LABORATORY RESULTS ORDER 100: URINE T EST (LOINC: 2111-07) ORDER DATE: May 12, 2025 6:00:00 PM UTC Specimen Source: Urine Specimen Type: Urine specime n PERFORMING LAB: [address] [id number] Result Comment: Final Result Date: May 12, 2025 6:10:00 PM UTC (TECH: RKM) LOINC TEST FLAG RESULT REFERENCE RANGE UPDA PATT BY 2111-07 Choriogonadotropin.b eta subunit ( test) [Presence] in Urine N NEGATIVE NEGATIVE May 12, 2025 6:10:00 PM UTC (TECH: RKM) 88792-2 Non-patient Communic ation note N PASS PASS May 12, 2025 6:10:00 PM UT (TECH: NESHA) LABORATORY NARRATIVE RESULTS Information is not available RADIOLOGY RESULTS Information is not available PATHOLOGY NARRATIVE RESULTS Information is not available MICROBIOLOGY RESULTS No Micro Labs/Results Exist for Patient BLOOD ADMIN RESULTS Information is not available MEDICATIONS HOME MEDICATIONS Status RXNORM NDC Medication Dose Route Frequency Dates Comments Reported By Updated By Patient not on Self-Medications [id number] on May 11, 2025 4:50:04 PM UT DISCHARGE MEDICATIONS Status RXNORM NDC Medication Dose Route Frequency Dates Dis pense Data Comments Physician Updated By No Discharge Medication Info rmation Available INPATIENT MEDICATIONS Status RXNORM NDC Medication Dose Route Frequency Rat e Quantity Dates Indication Dispense Data Comments Physician Updated By Discont inued [id number] 1406 5666 105 ANCEF 2 G SOLR 2000. 0 MG INTRAV ENOUS UNSCHEDULE D 200.0 ML/HR Start: [facility] 2024 10:00: 00 AM UT End: [facility] 2024 1:41:0 0 AM UT NIDHI VALLEJO MD [id number] on May 13, 2025 4:20:00 AM UT Discont inued [id number] 0033 8055 318 sodium chloride 0.9% MBP SOLN 100.0 ML INTRAV ENOUS UNSCHEDULE D 200.0 ML/HR Start: [facility] 2024 10:00: 00 AM UTC End: [facility] 2024 1:41:0 0 AM UT NIDHI VALLEJO MD [id number] on May 13, 2025 4:20:00 AM UT Discont inued [id number] 4380 0016 505 LIDOCAINE HCL (PF) 2 % SOLN 5.0 ML INTRAV ENOUS ONE TIME ONLY Start: [facility] 2024 6:37:0 0 PM UTC End: [facility] 2024 6:37:0 0 PM [place] NIDHI VALLEJO MD [facility] ED on May 12, 2025 6:36:00 PM UT Discont inued [id number] 8681 8320 970 propofol (DIPRIVAN) 10 MG/ML EMUL 200.0 MG INTRAV ENOUS ONE TIME ONLY Start: [facility] 2024 6:37:0 0 PM UTC End: [facility] 2024 6:37:0 0 PM UTC NIDHI VALLEJO MD [facility] on May 12, 2025 6:36:00 PM UTC Discont inued [id number] 4894 1602 725 fentaNYL (SUBLIMAZE) 0.05 MG/ML SOLN 100.0 MCG IV PUSH ONE TIME ONLY Start: [facility] 2024 6:37:0 0 PM UTC End: [facility] 2024 6:37:0 0 PM UTC NIDHI VALLEJO MD [facility] on May 12, 2025 6:36:00 PM UTC Discont inued [id number] 4338 1060 502 midazolam 2 MG/2 ML SOLN 2.0 MG IV PUSH ONE TIME ONLY Start: [facility] 2024 6:37:0 0 PM UTC End: [facility] 2024 6:37:0 0 PM UTC NIDHI VALLEJO MD [facility] ED on May 12, 2025 6:37:00 PM UTC Discont inued 9364060 1694 9301 305 lidocaine (XYLOCAINE) 2% UROJET GEL 10.0 ML TOPICA L ONE [facility] ONLY [facility] 7[facility]0 0 PM UTC NIDHI VALLEJO MD [facility] ED on May 12, 2025 7:19:00 PM UTC SOCIAL HISTORY SOCIAL HISTORY - Smoking Status SNOMED-CT Social History Element Description Effective Dates Offered Cessation Comment Updated By [id number] Current Tobacco smoking status Current Every Day Smoker [id number] on May 11, 2025 4:47:27 PM UTC SOCIAL HISTORY - Gender Sex: Female SOCIAL HISTORY - Status : status i nformation is not available Intention in Next Year: intention information is not available SOCIAL HISTORY - Assessments Code System Description Status Date Value of Assessment Updated By Comment Assessment Information is no t available SOCIAL HISTORY - [place] Affiliation [place] information is not av ailable SOCIAL HISTORY - Legal Sex Legal Sex information is not available SOCIAL HISTORY - Sexual Behavior Sexual Orientation Gender Identity SNOMED-CT Description SNO MED -CT Description Activity Level No of Partners Partner Type UpdatedBy Information is not available SOCIAL HISTORY - Occupation Occupation information is no t available VITAL SIGNS PATIENT VITAL SIGNS This section displays the mo st recent value for each vital sign as of May 14, 2025 2:49:46 PM UTC Loinc Code Vital Sign Activity Date Result Updated By 8302-2 Body height May 12, 2025 6:08:04 PM UTC 160.66 cm (63.0 in) [id number] on May 12, 2025 6:08:04 PM UTC 40091-5 Body mass index (BMI ) [Ratio] May 12, 2025 6:08:04 PM UTC 33.899 kg/m2 3140-1 Body Surface Area Derived From Formula May 12, 2025 6:08:04 PM UTC 1.9099 m2 8310-5 Body temperature May 12 8:14:00 PM UTC 98.0 [degF] 47677-4 Body weight Measured May 12, 2025 6:08:04 PM UTC 87.5 kg (193.0 lb) [id number] on May 12, 2025 6:08:04 PM UTC 8462-4 Diastolic blood pressure May 12, 2025 8:14:00 PM UTC 68.0 mm[Hg] 8867-4 Heart rate May 12, 2025 8:14:00 PM UTC 70 /min 36837-6 Oxygen saturation in Arterial blood by Pulse oximetry May 12, 2025 8:14:00 PM UTC 97.0 % 9279-1 Respiratory rate May 12 8:14:00 PM UTC 18 /min 8480-6 Systolic blood pressure May 12, 2025 8:14:00 PM UTC 134.0 mm[Hg] PEDIATRIC GROWTH CHART - VITAL SIGNS This section displays Head C ircumference Percentile, Weight for Length Percentile and BMI Percentile Loinc Code Pediatric Measure Age (Months) Result Updat ed By No Pediatric Growth Chart Pe rcentile Information Available. PROCEDURES PATIENT PROCEDURES CODE SYSTEM DESCRIPTION STATUS PERFORMED DATE UPD ATED BY [id number] SNOMED-CT CYSTOSCOPY INSER TION STENT URETER completed May 12, 2025 4:00:00 AM UTC [id number] on May 12, 2025 7:33:03 PM UTC PROCEDURE NOTE Note Title Operative/Procedure Note Date Of Service May 12, 2025 8:0 1:38 PM UTC Created By [id number] on April 162024 8:01:38 PM UTC Signed By [email or web address] on April 162024 8:06:15 PM UTC Pre-Procedure Diagnosis Kidney stone Post- Procedure Diagnosis Kidney stone Procedure / Surgery Performed CYSTOSCOPY INSERTION STENT URETER, LEFT left cystoscopy lw/ stent placement / c-arm additional #'s [id number] Performed by NIDHI VALLEJO MD With stone manipulation Anesthesia Type General anesthesia Estimated Blood Loss 1 cc Complications None Indication Patient is 29-year-old white female who presented to outside emergency room this weekend with left-sided flank pain. CT scan there showed a 17 mm stone at the left UPJ. She was discharged home with antibiotics and pain medication. She was set up for cystoscopy left stent placement today and later ESWL as planned. We discussed the procedure in the plan today and she wishes to proceed under general anesthesia. Procedure Description / Findings Patient taken to the operating room after informed consent was obtained. She was placed on the operating table in the supine position and general anesthesia administered. Preoperative antibiotics and sequential compression devices were placed. She was then placed into the dorsal lithotomy position and prepped and draped in the standard surgical fashion. The 22 Gabonese cystoscope passed into the urethra and into the bladder without difficulty. The bladder examined in a systematic fashion. There was no evidence of mucosal abnormalities, stones, diverticula or trabeculation. The ureteral orifices in their normal anatomic position. Five Gabonese ureteral catheter was passed into the left ureteral orifice and proximally under fluoroscopy and the stone was encountered and pushed easily back into the renal pelvis. There was no resistance at the UPJ. A guidewire then passed through the ureteral catheter and the ureteral catheter removed. A 6 x 24 Gabonese stent was then passed over the guidewire and there was some resistance to passage proximally. The string and guidewire then removed and there was some bloody efflux of urine from the ureteral stent afterwards. I attempted to pass a ureteral catheter by the stent and do a retrograde pyelogram but there was no room for the ureteral catheter to pass in the contrast did not pass proximally. There was good efflux of urine from the stent holes and it was clear. Bladder drained and scope removed. Uro jet placed into the urethra. Patient tolerated well. Specimens None Tubes/Drains Left ureteral stent Implants None Disposition of Patient Stable to recovery room Home to finish up oral antibiotics We will set up for left ESWL next week. Electronically signed by NIDHI VALLEJO MD on Oct-28-2025 1606 HEALTH CONCERNS Problems Concern Status Health Concern problem infor mation not available. Smoking Status Status Years Used Consumed packs p er day Health Concern smoking histo ry information not available. Family History Concern Status Health Concern family histor y information not available. MEDICAL EQUIPMENT MEDICAL EQUIPMENT Device Status Quantity Dates Procedure Comments Updated By Polymeric ureteral stent SKYLAR: [id number] Assigning Authority: [facility] Device Identifier:[id number] Lot or Batch Number:[id number] Expiration Date:2027-12-30 ACTIVE 1 Implanted: May 12, 2025 CYSTOSCOPY INSERTION STENT URETER [id number] on May 12, 2025 7:33:46 PM [facility] ENCOUNTERS ENCOUNTER INFORMATION Reason for Visit CYSTO Admission May 12, 2025 5:41:00 PM [place] [id number] Discharge May 13, 2025 1:41:00 AM [facility] DISCHARGED TO HOME OR SELF CARE ENCOUNTER DIAGNOSES Notes information is not jonathan ilable. Code System Diagnosis Onset Date Diagnosis information is not available. ABSTRACT DIAGNOSES Code System Diagnosis Updated By Abatement Date N20.1 ICD10 CALCULUS OF URETER [id number] o n May 14, 2025 2:49:16 PM [facility] N20.1 ICD10 CALCULUS OF URETER [id number] o n May 14, 2025 2:49:16 PM [facility] F17.210 ICD10 NICOTINE DEPENDE NCE, CIGARETTES, UNCOMPLICATED [id number] on May 14, 2025 2:49:16 PM [facility] E66.9 ICD10 OBESITY, UNSPECIFIED [id number] on May 14, 2025 2:49:16 PM [facility] Z68.33 ICD10 BODY MASS INDEX [BMI] 33.0-33.9, ADULT [id number] on May 14, 2025 2:49:16 PM [facility] CARE TEAM Care Bio Medical Technician Role CARLY BLAKE Primary Care YONI TERRELL Admitting YONI TERRELL Primary Attending YONI TERRELL Surgeon YONI TERRELL Referring CARE TEAM CARE divorce lawyer Role on Team Location Telecom Status Start Date End Harvinder e Updated By EZ Wilkinson CRNA Healthcare professional normal May 12, 2025 7:18:00 PM [facility] May 13, 2025 1:41:00 AM [facility] [id number] on May 12, 2025 8:17:55 PM [facility] NIDHI VALLEJO MD Surgeon normal May 12, 2025 7:25:00 PM UTC May 13, 2025 1:41:00 AM UTC [id number] on May 12, 2025 8:17:55 PM UTC LOU Nugent PCP normal May 12, 2025 5:44:44 PM UTC May 12, 2025 4:00:00 AM UTC [id number] on May 12, 2025 8:17:[address] MALAGNO NAME IN RN PCP normal May 11, 2025 8:14:42 PM UTC May 12, 2025 5:44:44 PM UTC [id number] on May 12, 2025 8:17:55 PM UTC NIDHI VALLEJO MD Referring normal May 11, 2025 8:14:42 PM UTC May 12, 2025 4:00:00 AM UTC [id number] on May 12, 2025 8:17:55 PM UTC NIDHI VALLEJO MD Attending normal May 11, 2025 8:14:42 PM UTC May 12, 2025 4:00:00 AM UTC [id number] on May 12, 2025 8:17:55 PM UTC NIDHI VALLEJO MD Admitting normal May 11, 2025 8:14:41 PM UTC May 12, 2025 4:00:00 AM UTC [id number] on May 12, 2025 8:17:55 PM UTC
[2025-05-16] VITALS (7 sets, daily range): BP systolic 108–137; BP diastolic 67–87; PULSE 65–108; RESP 18; TEMP 36.7; O2SAT 95–100; BMI 34.2
[2025-05-16 09:38] LABS: Microscopic, Urine URINE MICROSCOPIC (MICROSCOPIC)
--- NOTE | 2025-05-16 09:51 | US_ITS ---
PROCEDURE INFORMATION: Exam: US Pelvis, Transvaginal, Non-Obstetric Exam date and time: 05/16/2025 10:41 AM Age: 29 years old Clinical indication: Pelvic pain; Additional info: Recent 4 cm left ov cyst, R/O torsion TECHNIQUE: Imaging protocol: Real-time transvaginal pelvic (non-obstetric) ultrasound with image documentation. Transvaginal imaging was used for better evaluation of the endometrium, adnexa, and/or cervix. COMPARISON: US TRANSVAGINAL 09/29/2024 8:11 AM FINDINGS: Uterus: Uterus is normal. Endometrial stripe is normal. Right ovary/adnexa: Normal. No mass. Normal ovarian blood flow on color Doppler. Left ovary/adnexa: 4 cm cyst in the left ovary. Normal ovarian blood flow on color Doppler Urinary bladder: Urinary bladder is limited. Intraperitoneal space: No free fluid. IMPRESSION: 4 cm anechoic left ovarian cyst. Normal color flow.
--- NOTE | 2025-05-16 09:51 | CT_ITS ---
PROCEDURE INFORMATION: Exam: CT Abdomen And Pelvis Without Contrast Exam date and time: 05/16/2025 10:33 AM Age: 29 years old Clinical indication: Abdominal pain; Additional info: Recent stent, large left stone, llq pain TECHNIQUE: Imaging protocol: Computed tomography of the abdomen and pelvis without contrast. Radiation optimization: All CT scans at this facility use at least one of these dose optimization techniques: automated exposure control; mA and/or kV adjustment per patient size (includes targeted exams where dose is matched to clinical indication); or iterative reconstruction. COMPARISON: CT ABDOMEN PELVIS W CON 05/10/2025 7:00 PM FINDINGS: Liver: Normal. No mass. Gallbladder and biliary ducts: Cholelithiasis. Pancreas: Normal. No ductal dilation. Spleen: Normal. No splenomegaly. Adrenal glands: Normal. No mass. Kidneys and ureters: Left ureteral stent in place. Stone in the left renal pelvis measuring 15 mm. Stomach and bowel: Unremarkable. No obstruction. No mucosal thickening. Appendix: The appendix is surgically removed Intraperitoneal space: Unremarkable. No free air. No significant fluid collection. Vasculature: Unremarkable. No abdominal aortic aneurysm. Lymph nodes: Unremarkable. No enlarged lymph nodes. Urinary bladder: Unremarkable as visualized. Reproductive: Unremarkable as visualized. Bones/joints: Unremarkable. No acute fracture. Soft tissues: Unremarkable. IMPRESSION: 1. 15 mm stone in the left renal pelvis. Left ureteral stent in place. 2. The appendix is surgically removed. 3. Cholelithiasis. No ductal dilatation
--- NOTE | 2025-05-16 09:54 | HMH.EDGENADL ---
Discharge Plan Disposition Chief Complaint: PAIN Prescriptions Prescriptions: No Action Nexplanon 68 mg implant 68 mg SUBDERMAL NEEDED PRN (Reason: control) cefdinir 300 mg capsule 300 mg PO BID 7 Days Qty: 14 0RF ketorolac 10 mg tablet 10 mg PO Q8H PRN (Reason: pain) 1 Days Qty: 15 0RF Referrals Follow up/Referrals: Bentley Nieto MD [Primary Care Provider, Medical] - See instructions Activity Restrictions/Add. Instructions Additional Instructions/Restrictions: Your left lower quadrant intermittent discomfort is likely secondary to ureteral contractions in association with your stent and known stone. No evidence that the stent has dislodged at that there is any superimposed infection. The ovarian cyst that you also have had no evidence of any torsion or rupture etc. Please return to the emergency department with any high fevers otherwise keep your follow-up appointment with urology as previously discussed. Clinical Impressions Clinical Impression: Abdominal pain, LLQ, Ovarian cyst, Ureteral stent present, Kidney stone Instructions Patient Instructions: Acute Abdominal Pain Print Language Print Language: Haitian Discharge ED Provider: Jose Ramon Camarena General Adult HPI General Chief complaint: PAIN Stated complaint: left stomach pain Time Seen by Provider: 05/16/25 09:43 Mode of Arrival: Ambulatory Source of Information: Patient Description of Symptoms (Recalled from ER Triage Doc. by RN): Reports having a stent placed in her kidney on Sunday and today she is experiencing extreme pain in her left lower abdomen. History of Present Illness HPI narrative: Patient is a 29-year-old female presenting today with intermittent and severe left lower quadrant abdominal pain. Was here just a few days ago and was diagnosed with a 17 mm stone in the ureteropelvic junction ultimately was seen by Dr. Benitez had a stent that was placed on Sunday. Is scheduled on for lithotripsy. Since that time she has had significant dysuria urgency frequency of urination also passing blood and blood clots. She also was diagnosed with a 4 cm left ovarian cyst that day. At the moment she has no pain but it been intermittently severe. No fevers. Related Data Home Medications ?Medication ?Instructions ?Recorded ?Confirmed etonogestrel 68 mg subdermal 68 mg subdermal NEEDED PRN 12/09/19 05/10/25 implant (Nexplanon) control Previous Rx's ?Medication ?Instructions ?Recorded cefdinir 300 mg capsule 300 mg PO BID 7 days #14 caps 05/10/25 ketorolac 10 mg tablet 10 mg PO Q8H PRN pain 1 day #15 05/10/25 tabs Allergies Allergy/AdvReac Type Severity Reaction Status Date / Time No Known Allergies Allergy Verified 05/10/25 17:25 [facility] Disclaimer: The information contained in this section may have been updated after the patient was seen, as this information can be updated by other users. Medical History (Updated 05/16/25 @ 12:27 by Jose Ramon Camarena MD) Flank pain Urinary tract infection symptoms Request for sterilization Vulvar lesion Acute pelvic pain, female Abdominal pain, acute Surgical History [place] teeth extracted History of D&C History of placement of ear tubes H/O elbow surgery Hx of appendectomy Family History Father Hypertension Social History Smoking Status: Current every day smoker tobacco type: cigarettes packs per day: 1 second hand exposure: Yes alcohol intake: never substance use type: denies use current occupational status: employed Travel in the last 8 weeks?: None housing: house Have you lived/traveled outside [place] in past 30 days?: No Contact w/someone who lives/traveled outside [place] past 30 days?: No Exposure to someone with infectious disease in past 14 days?: No Do you have a fever (greater than 100.4 F or 38 C)?: No Have you tested positive for COVID-19?: No Exposed to someone with COVID-19 in past 14 days?: No Do you have a sore throat?: No Do you have a cough?: No Do you have any weakness?: No Do you have any diarrhea?: No Are you experiencing any unusual bleeding?: No Do you have any muscle aches/pain?: No Do you have any abdominal pain?: No Are you experiencing loss of taste or smell?: No Other Medical History Have you received the Flu Vaccine for this season: No Have you received the Pneumonia Vaccine: No ROS Obtained: Yes All systems reviewed & no additional complaints except as documented Physical Exam General General appearance: alert and in no apparent distress Respiratory Respiratory exam: Present normal lung sounds bilaterally Cardiovascular Cardiovascular exam: Present regular rate Abdominal Exam Abdominal exam: Present soft; Absent distention or tenderness Neurological Exam Neurological exam: Present alert and oriented X3 Medical Decision Making Medical Records Screening: Per USPSTF and CDC recommendations, given the prevalence of disease in our region, it is our hospital?s policy to screen for HIV and viral Hepatitis for all patients aged 18 and over and those with ongoing risk factors. Markos Inquiry Pt receiving controlled substance: No Vital Signs: 05/16/25 09:32 05/16/25 09:59 05/16/25 10:15 Temperature 98.1 F Temperature Source Oral Pulse Rate 86 82 Pulse Rate [Radial] 108 H Respiratory Rate 18 Blood Pressure 123/83 124/67 Blood Pressure [Right Arm] 137/87 Blood Pressure Mean [Right Arm] 103 Blood Pressure Source [Right Arm] Automatic Cuff Blood Pressure Position [Right Arm] Sitting 02 Sat by Pulse Oximetry 95 95 98 Oxygen Delivery Method Room Air Room Air Room Air 05/16/25 10:45 05/16/25 11:30 05/16/25 12:00 Temperature Temperature Source Pulse Rate 67 65 68 Pulse Rate [Radial] Respiratory Rate Blood Pressure 108/71 L Blood Pressure [Right Arm] Blood Pressure Mean [Right Arm] Blood Pressure Source [Right Arm] Blood Pressure Position [Right Arm] 02 Sat by Pulse Oximetry 98 100 97 Oxygen Delivery Method Room Air Room Air Lab Data Lab results reviewed: Yes I reviewed the patient's lab results. Lab Results 05/16/25 09:32: Urine Color Yellow, Urine Appearance Cloudy, Urine pH 6.5, Ur Specific Stella 1.025, Urine Protein 2+ A, Urine Glucose (UA) Negative, Urine Ketones Negative, Urine Blood 3+ A, Urine Nitrate Negative, Urine Bilirubin Negative, Urine Urobilinogen 0.2, Ur Leukocyte Esterase 1+ A, Urine RBC Tntc, Urine WBC None, Ur Squamous Epith Cells None, Urine Bacteria None 05/16/25 09:42: WBC 13.0 H, RBC 4.93, Hgb 14.6, Hct 44.0, MCV 89.2, MCH 29.6, MCHC 33.2, RDW 12.6, Plt Count 288, MPV 9.8, Neut % (Auto) 72.7, Lymph % (Auto) 19.0, Geary % (Auto) 4.4, Eos % (Auto) 3.2, Baso % (Auto) 0.5, Neut # (Auto) 9.4 H, Lymph # (Auto) 2.5, Geary # (Auto) 0.6, Eos # (Auto) 0.4, Baso # (Auto) 0.1, Sodium 138, Potassium 4.1, Chloride 105, Carbon Dioxide 25, Anion Gap 12.1, BUN 15, Creatinine 0.60, Estimated Creat Clear 189, Estimated GFR 117, Est GFR ( Amer) 142, Glucose 111 H, Calcium 8.7, Total Bilirubin 0.6, AST 22, ALT 21, Alkaline Phosphatase 65, Total Protein 7.4, Albumin 3.6, Globulin 3.8 H, Albumin/Globulin Ratio 0.9 L, Serum HCG, Qual Negative 05/16/25 10:40: Lactate 0.9 05/16/25 09:42 05/16/25 09:42 Orders (Tests/Meds): ED MEDICATIONS Discontinued Medications Generic Name Dose Route Start Last Admin Trade Name Rajan PRN Reason Stop Dose Admin Lactated Ringer's 1,000 mls @ 999 mls/hr 05/16/25 10:00 05/16/25 09:56 Lactated Ringer's 1000 Ml Bag IV 05/16/25 11:00 999 mls/hr .Q1H1M RONEL Administration Ketorolac Tromethamine 15 mg 05/16/25 09:51 05/16/25 09:56 Ketorolac 30mg/Ml Vial IV 05/16/25 09:52 15 mg ONCE ONE Administration Morphine Sulfate 4 mg 05/16/25 09:51 05/16/25 09:56 Morphine 4mg/Ml Syringe IV 05/16/25 09:52 4 mg ONCE ONE Administration Ondansetron HCl 4 mg 05/16/25 09:51 05/16/25 09:55 Ondansetron 4mg/2ml Vial IV 05/16/25 09:52 4 mg ONCE ONE Administration ORDERS Category Date Time Status CT abdomen pelvis wo con Stat Cat Scan 05/16/25 09:51 Completed US transvaginal Stat Exams 05/16/25 09:51 Completed CBC w/Auto Diff [Complete Blood Count Auto Diff] Stat Lab 05/16/25 09:42 Completed CMP [Comprehensive Metabolic Panel] Stat Lab 05/16/25 09:42 Completed HCG Qualitative, Serum Stat Lab 05/16/25 09:42 Completed Lactic Acid Stat Lab 05/16/25 10:40 Completed UA [Urinalysis and Microscopic] Stat Lab 05/16/25 09:32 Completed Urine Culture Stat Micro 05/16/25 09:32 Received Medical Decision Narrative: Patient with above history and physical. Given the fact that she has a known 17 mm stone it could be complications of this including stone passage obstruction worsening hydronephrosis calyceal rupture infection stent infection spasming associated with the stent also could be complications of the cyst including ovarian torsion that could be causing this intermittent pain. Will get a transvaginal ultrasound to evaluate for torsion in addition to repeat CT scan and labs. IV fluids symptomatic medications also have been administered and will reassess. Reassessment 12:27 PM patient feeling much better serial exams are benign no evidence of sepsis she remains stable from a vital sign standpoint. CT scan was performed personally interpreted which shows an intact and nondislodged ureteral stent stone is still located within the collecting system of the kidney itself without any significant or severe hydronephrosis or perinephric stranding. Urinalysis did have 1+ leukocyte esterase but no whites and no bacteria this is not consistent with an infection likely some mild inflammatory reaction. Patient claims that she is also been on recent antibiotics has had no fevers etc. With regards to her ovarian cyst ultrasound was performed which showed no evidence of ovarian torsion and a 4 cm cyst remained. She has close outpatient follow-up with urology has been told to return to the emergency department with any high fevers or worsening of her symptoms majority of her symptoms are likely secondary to ureteral contractions in the setting of the ureteral stent patient was discharged in stable condition peer Critical Care Critical Care Time Critical Care Time: No
[2025-05-16] MEDS: ONDANSETRON 4MG/2ML VIAL 4 MG IV (09:55)
[2025-05-16] MEDS: KETOROLAC 30MG/ML VIAL 15 MG IV (09:56)
[2025-05-16] MEDS: MORPHINE 4MG/ML SYRINGE 4 MG IV (09:56)
[2025-05-16] MEDS: LACTATED RINGERS 1000ML 1,000 ML 999 ML IV (09:56)
[2025-05-16 10:06] LABS: Bilirubin,Urine Negative (Negative); Color,Urine YELLOW (Yellow); Glucose,Urine (UA) Negative (Negative); Ketones,Urine Negative (Negative); Leukocyte Esterase,Urine 1+ (Negative); PH,Urine 6.5 (5.0-8.5); Protein,Urine 2+ (Negative); Specific Gravity, Urine 1.025 (1.005-1.030); Urobilinogen,Urine 0.2 EU/dl (0.2)
[2025-05-16 10:24] LABS: Hematocrit 44.0 % (37.0-47.0); Hemoglobin 14.6 g/dL (12.2-16.2); Immature Granulocytes % 0.2 %; Mean Corpuscular HGB Conc 33.2 g/dL (31.8-35.4); Mean Corpuscular Hemoglobin 29.6 pg (27.0-31.2); Mean Corpuscular Volume 89.2 fl (81-99); Nucleated Red Blood Cells % 0 %; Platelet Count 288 K/mm3 (142-424); Red Blood Count 4.93 M/mm3 (4.20-5.40); Red Cell Distribution Width-SD 41.7 fL; White Blood Count 13.0 K/mm3 (4.8-10.8)
[2025-05-16 10:26] LABS: HCG Qualitative, Serum Negative (Negative)
[2025-05-16 10:33] LABS: RBC,Urine TNTC #/hpf (0-3)
[2025-05-16 10:34] LABS: Alanine Aminotransferase 21 U/L (12-78); Albumin Level 3.6 g/dl (3.5-5.0); Albumin/Globulin Ratio 0.9 (1.1-1.8); Alkaline Phosphatase 65 U/L (38-126); Anion Gap 12.1 mEq/L (5-15); Aspartate Amino Transferase 22 U/L (14-36); Bilirubin,Total 0.6 mg/dl (0.2-1.3); Blood Urea Nitrogen 15 mg/dl (7-17); Calcium 8.7 mg/dl (8.4-10.2); Carbon Dioxide 25 mmol/L (22.0-30.0); Chloride 105 mmol/L (98-107); Creatinine Clearance Estimated 189 mL/min (50-200); Creatinine,Serum 0.60 mg/dl (0.52-1.04); Estimated Glomerular Filt Rate 117 ml/min (>60); GFR (African American) 142 ML/MIN (>60); Globulin 3.8 g/dL (1.3-3.2); Glucose 111 mg/dl (74-100); Potassium 4.1 mmoL/L (3.5-5.1); Sodium 138 mmol/L (136-145); Total Protein,Serum 7.4 g/dl (6.3-8.2)
== END 2025-05-16 12:42 | disposition home or self-care (01) ==
PROVIDERS: Emergency Provider Student in an Organized Health Care Education/Training Program; PCP Family Medicine
DX: R10.32 Left lower quadrant pain (principal); N83.202 Unspecified ovarian cyst, left side; N20.0 Calculus of kidney; F17.210 Nicotine dependence, cigarettes, uncomplicated; Z96.0 Presence of urogenital implants
CPT/HCPCS: 74176; 76830; 80053; 81001; 83605; 84703; 85025; 87086; 96361; 96374; 96375; 99284; 99285; J1885; J2270; J2405; J7120

== ENCOUNTER 2025-06-03 10:30 | Outpatient (CLI) | payer OTHER, SELFPAY ==
[2025-06-03 08:29] VITALS: BMI 34.9
[2025-06-03 11:49] LABS: Hematocrit 41.2 % (37.0-47.0); Hemoglobin 13.7 g/dL (12.2-16.2); Immature Granulocytes % 0.3 %; Mean Corpuscular HGB Conc 33.3 g/dL (31.8-35.4); Mean Corpuscular Hemoglobin 29.8 pg (27.0-31.2); Mean Corpuscular Volume 89.6 fl (81-99); Nucleated Red Blood Cells % 0 %; Platelet Count 278 K/mm3 (142-424); Red Blood Count 4.60 M/mm3 (4.20-5.40); Red Cell Distribution Width-SD 41.7 fL; White Blood Count 12.3 K/mm3 (4.8-10.8)
[2025-06-03 11:57] LABS: Alanine Aminotransferase 22 U/L (12-78); Albumin Level 4.3 g/dl (3.5-5.0); Albumin/Globulin Ratio 1.7 (1.1-1.8); Alkaline Phosphatase 64 U/L (38-126); Anion Gap 9.9 mEq/L (5-15); Aspartate Amino Transferase 31 U/L (14-36); Bilirubin,Total 0.4 mg/dl (0.2-1.3); Blood Urea Nitrogen 11 mg/dl (7-17); Calcium 9.1 mg/dl (8.4-10.2); Carbon Dioxide 23 mmol/L (22.0-30.0); Chloride 104 mmol/L (98-107); Creatinine Clearance Estimated 230 mL/min (50-200); Creatinine,Serum 0.50 mg/dl (0.52-1.04); Estimated Glomerular Filt Rate 144 ml/min (>60); GFR (African American) 174 ML/MIN (>60); Globulin 2.5 g/dL (1.3-3.2); Glucose 94 mg/dl (74-100); Potassium 3.9 mmoL/L (3.5-5.1); Sodium 133 mmol/L (136-145); Total Protein,Serum 6.8 g/dl (6.3-8.2)
[2025-06-03 14:36] LABS: HCG Qualitative, Serum Negative (Negative)
== END 2025-06-03 23:59 | disposition home or self-care (01) ==
LOC: PREOP 10:30
PROVIDERS: PCP Family Medicine; Visit Provider Obstetrics & Gynecology
DX: Z01.812 Encounter for preprocedural laboratory examination (principal)
CPT/HCPCS: 80053; 84703; 85025

== ENCOUNTER 2025-06-08 07:50 | Day surgery (SDC) | payer OTHER, SELFPAY ==
[2025-06-03 14:23] VITALS: BMI 34.9
[2025-06-08] VITALS (12 sets, daily range): BP systolic 114–152; BP diastolic 70–99; PULSE 70–91; RESP 16–24; TEMP 36.1–38; O2SAT 94–96
[2025-06-08] MEDS: ACETAMINOPHEN 500MG TAB 1000 MG PO (08:18)
[2025-06-08] MEDS: LACTATED RINGERS 1000ML 1,000 ML 25 ML IV (08:26)
--- NOTE | 2025-06-08 08:41 | P.PNANES_ITS ---
[facility] Disclaimer: The information contained in this section may have been updated after the patient was seen, as this information can be updated by other users. Medical History Incontinence in female Encounter for preoperative assessment Flank pain Urinary tract infection symptoms Request for sterilization Vulvar lesion Acute pelvic pain, female Abdominal pain, acute Surgical History H/O placement of ureteral stent Mammoth teeth extracted History of D&C History of placement of ear tubes H/O elbow surgery Hx of appendectomy Family History Father Hypertension Social History Smoking Status: Current every day smoker tobacco type: cigarettes packs per day: 1 second hand exposure: Yes alcohol intake: never substance use type: denies use current occupational status: employed Travel in the last 8 weeks?: None housing: house Have you lived/traveled outside US in past 30 days?: No Contact w/someone who lives/traveled outside US past 30 days?: No Exposure to someone with infectious disease in past 14 days?: No Do you have a fever (greater than 100.4 F or 38 C)?: No Have you tested positive for COVID-19?: No Exposed to someone with COVID-19 in past 14 days?: No Do you have a sore throat?: No Do you have a cough?: No Do you have any weakness?: No Are you experiencing any nausea/vomitting?: No Do you have any diarrhea?: No Are you experiencing any unusual bleeding?: No Do you have any muscle aches/pain?: No Do you have any abdominal pain?: No Are you experiencing loss of taste or smell?: No [facility] Anesthesia Checklist Patient Identification Patient Identification: Arm Band and Verbal (Name & ) Structural Data Admitted From: Home Planned Operative Procedure/s: lap tubal Consent for Planned Operative Procedure(s) Verified: Yes Verified Documents: Surgical Consent and History and Physical NPO Status Verified Time NPO: 00:00 Additional verifications Patient : No Anesthesia Reactions: No Hx Blood Transfusions: No Blood Transfusion Reaction: No Airway Assessment Mallampati Score:: Class I Dentition: Good Dentition Neurological Assessment Level of Consciousness: Awake, Alert and Appropriate Hx Seizures: No Numbness or tingling in extremities: No Anesthesia Plan Anesthesia Risk discussed: Yes Anesthesia Plan: Verified ASA Class: II Anesthesia Type: General
[2025-06-08] MEDS: BUPIVACAINE 0.5% W/EPI 1:200,000 30ML VIAL 30 ML IJ (10:07)
--- NOTE | 2025-06-08 11:10 | EXP.ANES.I ---
[facility] Anesthesia Record Part I Anesthesia Record I Intake, IV Amount: 1,200 Hydration: Adequate Estimated blood loss (mL): 0 Urine output (mL): 0 Blood Products used (#): none Blood Pressure: 146/85 SaO2: 96 Pulse Rate: 91 Airway Patency: Patent Respiratory Rate: 24 Temperature: 97.4 F Patient is:: Drowsy and Stable Stable to PACU at:: 11:05
[2025-06-08] MEDS: KETOROLAC 30MG/ML VIAL 30 MG IV (11:18)
[2025-06-08] MEDS: ONDANSETRON 4MG/2ML VIAL 4 MG IV (11:18)
--- NOTE | 2025-06-08 11:23 | EXP.OP.NOTE ---
Date of procedure: 06/08/25 Pre-op Diagnosis:: 1. Complete family status, desires permanent sterilization Post-op Diagnosis:: 1. Complete family status, desires permanent sterilization Procedure performed:: Laparoscopy, left salpingectomy, Fil[place] clip placement on right fallopian tube Surgeon:: Jennifer Peralta DO Immigration Investigator(s):: N/a COVERING MACHINE TENDER:: Heriberto Pguh Anesthesia: GETA Estimated blood loss (mL): 5 Clinical Note:: Ms Ai Sanford is a 30 yo [id number] who presents to [facility] for scheduled procedure. She is complete with childbearing bearing and desires permanent sterilization. History of x 1. Surgical history significant for appendectomy. Operative findings:: 1. On bimanual exam, enlarged uterus, retroverted, normal shape. No adnexal masses palpated. Cervix grossly normal. 2. On laparoscopic exam liver, omentum and bowel grossly normal. Gallbladder not visualized. Stomach not well visualized secondary to omentum but appeared grossly normal. Uterus slightly enlarged and retroverted. Unable to adequatly lift uterus out of the pelvis. Even with Trendelenburg position bowel would not stay cephald and kept falling towards uterus. With holding the bowel cephalad with blunt probe part of left fallopian tube and left ovary was visualized. Right fallopian tube was identified but could not be safely removed secondary to uterus position and bowel. Right ovary was not visualized. Operative note:: Risks, benefits and alternatives were discussed with the patient. Risks include but are not limited to bleeding, infection, damage to adjacent structures and VTE. Patient voiced understanding and agreed to proceed with surgery. She was wheeled back to the operating room and placed under general anesthesia without difficulty. She was placed in the dorsal lithotomy position and prepped and draped in normal sterile fashion. A straight catheter was used to drain the bladder. A bimanual exam was performed. A weighted Auvard was placed in the vaginal vault. A single tooth tenaculum was placed on the anterior lip of the cervix. [place] manipulator was inserted into the cervical canal and attached to the tenaculum. Weighted Auvard was removed from the vagina. Attention was then drawn to the abdomen. A 1.5 cm infraumbilical incision was made. Veress needle was tested and inserted intraabdominally without difficulty. Opening pressure of 4 mm Hg. Abdomen was then insulflated to 15 mm Hg. Trocar was inserted through infraumbilical incision and laparoscope was inserted. Abdomen was viewed in its entirety. See findings above. Pictures were taken. Left lower quadrant was transilluminated. 5 mm incision was made and 5 mm disposable blunt trocar was inserted into the abdomen under direct laparoscopic visualization. Trocar was removed and sleeve was left in place. Right lower quadrant was transilluminated. A 5 mm incision was made and a 5 mm disposable trocar was inserted into the abdomen under direct laparoscopic visualization. Obturator was removed and sleeve was left in place. Fimbriated end of left fallopian tube was identified but could not be grasped secondary to bowel and retroverted uterus unable to be lifted out of the pelvis. Ligasure was used to transect the left fallpian tube at the cornua of the uterus. Transection was carried down the mesosalpinx to the fimbriated end of the fallopian tube. The left fallopian tube was removed from the body and handed off the sterile field. Attention was turned to the right fallopian tube. Unable to visualize the right ovary or fimbriated end of right fallopian tube but able to identify right fallopian tube at the cornua of the uterus and right round ligament. Unable to safely remove the right fallopian tube. Decision was made to proceed with Filshie clips. Right lower quadrant 5 mm trocar was removed under direct laparoscopic visualization. Skin incision was extended to 8mm. An 8 mm blunt disposable was inserted under direct laparoscopic visualization. Two Filshie clips were placed on the isthmus portion of the right fallopian tube approximately 1 cm from the uterine cornua. Left fallopian tube will be sent to pathology for review. Hemostasis was noted. Left lower quadrant trocar was removed under direct laparoscopic visualization. Right lower quadrant trocar was removed under direct laparoscopic visualization. Pneumoperitoneum was released into the atmosphere. Infraumbilical trocar was removed under direct laparoscopic visualization to ensure no herniation of bowel or omentum. Skin incisions were closed with 3-0 Vicryl. Dermabond was applied over closed skin incisions. All instruments were removed from the vagina. Tenaculum site was noted to be hemostatic. Patient was cleaned and placed into the dorsal supine position. She awoke from anesthesia without difficulty. She was transported to the recovery room in stable condition. She was given instructions for discharge and to follow-up in the office in 2 weeks at which time pathology will be reviewed. Condition: stable Disposition: same day Specimens:: 1. Left fallopian tube Complications:: None
[2025-06-08] MEDS: MORPHINE 2MG/ML SYRINGE 2 MG IV (11:25)
--- NOTE | 2025-06-08 14:10 | P.PNANES_ITS ---
[facility] Anesthesia Record Part II Anesthesia Record Part II Discharge Time: 11:35 Destination: Surgical Day Care (OP Surgery) PACU nurse assessment reviewed?: Yes Patient Condition:: Good Anesthesia Complications:: None Swallowing reflex intact?: Yes Airway Patency: Patent Cyanosis?: No Blood Pressure: 150/92 SaO2: 95 Respiratory Rate: 16 Pulse Rate: 81 Temperature: 97 F Mental Status: Alert & Oriented Pain level:: 2 Nausea and/or vomitting:: None Intake, IV Amount: 0 Hydration: Adequate
== END 2025-06-08 12:21 | disposition home or self-care (01) ==
PROVIDERS: PCP Family Medicine; Visit Provider Obstetrics & Gynecology
PROC: (CPT 58661; principal; 2025-06-08 09:30)
DX: Z30.2 Encounter for sterilization (principal); N85.4 Malposition of uterus; N85.2 Hypertrophy of uterus; R32 Unspecified urinary incontinence; Z90.49 Acquired absence of other specified parts of digestive tract; Z87.442 Personal history of urinary calculi; Z98.890 Other specified postprocedural states; F17.210 Nicotine dependence, cigarettes, uncomplicated
CPT/HCPCS: 58661; 58671; J1100; J1885; J2003; J2250; J2270; J2405; J2704; J3010; J7120

== ENCOUNTER 2025-06-12 09:52 | Emergency (ER) | payer OTHER, SELFPAY ==
--- OUTSIDE RECORDS SUMMARY | 2025-05-25 12:16 | XMS_ITS | Continuity of Care Document ---
Author Organization [facility] Phone Care Team Providers Care Paint Factory Worker Name Role Phone LOUCARLY Raffi Primary Care YONI TERRELL Surgeon YONI TERRELL Unavailable YONI TERRELL Admitting YONI TERRELL Primary Attending ALLERGIES AND ADVERSE REACTIONS ALLERGIES AND ADVERSE REACTIONS Code System Allergy Substance Adverse Reaction Date Reaction (Severity) Comment Status Reported By Updated By No Known Allergies [id number] on May 12, 2025 7:34:54 PM UT ASSESSMENTS Surgical procedure ; Kidney stone ; FAMILY HISTORY RELATION: Father Status: LIVING SNOMED-CT Diagnosis Age At Onset Information not available RELATION: Mother Status: LIVING SNOMED-CT Diagnosis Age At Onset Information not available PROBLEMS PATIENT PROBLEMS Code Description/Comments Category Status Upda patt By [id number] Surgical procedure active [id number] on May 20, 2025 1:47:49 PM UTC [id number] Kidney stone active [id number] on N 2024 5:49:33 PM UTC RESULTS Patient: IAN ZHAO Date of : 1995 1 LABORATORY RESULTS ORDER 100: URINE T EST (LOINC: 2111-07) ORDER DATE: May 21, 2025 2:15:00 PM UTC Specimen Source: Urine Specimen Type: Urine specime n PERFORMING LAB: [address] [id number] Result Comment: Final Result Date: May 21, 2025 2:28:00 PM UTC (TECH: MCP) LOINC TEST FLAG RESULT REFERENCE RANGE UPDA PATT BY 2111-07 Choriogonadotropin.b eta subunit ( test) [Presence] in Urine N NEGATIVE NEGATIVE May 21, 2025 2:28:00 PM [facility] (TECH: [facility]) 08053-9 Non-patient Communic ation note N PASS PASS May 21, 2025 2:28:00 PM [facility] (TECH: [employer]) LABORATORY NARRATIVE RESULTS Information is not available RADIOLOGY RESULTS Information is not available PATHOLOGY NARRATIVE RESULTS Information is not available MICROBIOLOGY RESULTS No Micro Labs/Results Exist for Patient BLOOD ADMIN RESULTS Information is not available TREATMENT PLAN DISCHARGE MEDICATIONS Status RXNORM Medication Dose Route Frequency Dates Comments U pdated By Patient discharge medication information is not available. PATIENT OPEN ORDERS Code System Descripti on Frequency Occurrenc es Priority Category [place] [address] [facility] Pathology report reviewed [Identifi er] in Speci ONE TIME 0 Routine May 21, 2025 3:03:00 PM [facility] NIDHI VALLEJO MD [id number] on May 21, 2025 3:03:00 PM [facility] SCHEDULED PROCEDURES Code System Description Status Scheduled Date Upd ated By Patient scheduled procedure information is not available. MEDICATIONS HOME MEDICATIONS Status RXNORM NDC Medication Dose Route Frequency Dates Comments Reported By Updated By Patient not on Self-Medications [id number] on May 13, 2025 4:31:24 PM [facility] DISCHARGE MEDICATIONS Status RXNORM NDC Medication Dose Route Frequency Dates Dis pense Data Comments Physician Updated By No Discharge Medication Info rmation Available INPATIENT MEDICATIONS Status RXNORM NDC Medication Dose Route Frequency Rat e Quantity Dates Indication Dispense Data Comments Physician Updated By Tavo inued [id number] 2871 5623 105 ANCEF 2 G SOLR 2000. 0 MG INTRAV ENOUS UNSCHEDULE D 200.0 ML/HR Start: er 2024 10:00: 00 AM UT End: er 2024 10:02: 00 PM [facility] Surgical procedure Fill Status = Completed , Repeat Number = 0, Quantity = 2.000 NIDHI VALLEJO MD [id number] on May 22, 2025 5:20:00 AM [facility] Discdarcy inued [id number] 0033 8055 318 sodium chloride 0.9% MBP SOLN 100.0 ML INTRAV ENOUS UNSCHEDULE D 200.0 ML/HR Start: er 2024 10:00: 00 AM UT End: er 2024 10:02: 00 PM UTC Surgical procedure Fill Status = Completed , Repeat Number = 0, Quantity = 2.000 NIDHI VALLEJO MD [id number] on May 22, 2025 5:20:00 AM UTC Discont inued [id number] 4346 3016 501 dexamethaso ne (DECADRON) 4 MG/1ML SOLN 4.0 MG IV PUSH ONE TIME ONLY Start: [facility] 2024 4:43:0 0 PM UTC End: [facility] 2024 4:43:0 0 PM UTC Fill Status = Completed , Repeat Number = 0, Quantity = 1.000 NIDHI VALLEJO MD INTERFAC ED on May 21, 2025 4:41:00 PM UTC Discont inued [id number] 5382 0016 505 LIDOCAINE HCL (PF) 2 % SOLN 5.0 ML INTRAV ENOUS ONE TIME ONLY Start: [facility] 2024 4:43:0 0 PM UTC End: [facility] 2024 4:43:0 0 PM UTC Fill Status = Completed , Repeat Number = 0, Quantity = 1.000 NIDHI VALLEJO MD INTERFAC ED on May 21, 2025 4:41:00 PM UTC Discont inued [id number] 6615 5613 005 ondansetron (ZOFRAN) INJ 4 MG/2 ML SOLN 4.0 MG IV PUSH ONE TIME ONLY Start: [facility] 2024 4:43:0 0 PM UTC End: [facility] 2024 4:43:0 0 PM UTC Fill Status = Completed , Repeat Number = 0, Quantity = 1.000 NIDHI VALLEJO MD INTERFAC ED on May 21, 2025 4:41:00 PM UTC Discont inued [id number] 1113 3026 970 propofol (DIPRIVAN) 10 MG/ML EMUL 200.0 MG INTRAV ENOUS ONE TIME ONLY Start: [facility] 2024 4:43:0 0 PM UTC End: [facility] 2024 4:43:0 0 PM UTC Fill Status = Completed , Repeat Number = 0, Quantity = 1.000 NIDHI VALLEJO MD INTERFAC ED on May 21, 2025 4:41:00 PM UTC Discont inued [id number] 4630 1602 725 fentaNYL (SUBLIMAZE) 0.05 MG/ML SOLN 100.0 MCG IV PUSH ONE TIME ONLY Start: [facility] 2024 4:43:0 0 PM UTC End: [facility] 2024 4:43:0 0 PM UTC Fill Status = Completed , Repeat Number = 0, Quantity = 1.000 NIDHI VALLEJO MD INTERFAC ED on May 21, 2025 4:41:00 PM UTC Discont inued 6262757 6203 1065 502 midazolam 2 MG/2 ML SOLN 2.0 MG IV PUSH ONE TIME ONLY Start: [facility] 2024 4:43:0 0 PM UTC End: [facility] 2024 4:43:0 0 PM UTC Fill Status = Completed , Repeat Number = 0, Quantity = 1.000 NIDHI VALLEJO MD INTERFAC ED on May 21, 2025 4:41:00 PM UTC Discont inued 280418 8889 7039 601 HYDROcodone /acetaminop hen 5/325 MG TABS 1.0 TAB BY MOUTH NEEDED Start: [facility] 2024 5:42:0 0 PM UTC End: [facility] 2024 10:02: 00 PM UTC Fill Status = Completed , Repeat Number = 0, Quantity = 0.000 LIO LISETH PIPELINE WELDER [id number] on May 22, 2025 5:20:00 AM UT SOCIAL HISTORY SOCIAL HISTORY - Smoking Status SNOMED-CT Social History Element Description Effective Dates Offered Cessation Comment Updated By [id number] Historical Tobacco smoking status Current Every Day Smoker [id number] on May 11, 2025 4:47:27 PM UT SOCIAL HISTORY - Gender Sex: Female SOCIAL HISTORY - Status : status i nformation is not available Intention in Next Year: intention information is not available SOCIAL HISTORY - Assessments Code System Description Status Date Value of Assessment Updated By Comment Assessment Information is no t available SOCIAL HISTORY - [place] Affiliation [place] information is not av ailable SOCIAL HISTORY - Legal Sex Legal Sex : Female (finding) SOCIAL HISTORY - Sexual Behavior Sexual Orientation Gender Identity SNOMED-CT Description SNO MED -CT Description Activity Level No of Partners Partner Type UpdatedBy Information is not available SOCIAL HISTORY - Occupation Occupation information is no t available VITAL SIGNS PATIENT VITAL SIGNS This section displays the mo st recent value for each vital sign as of May 25, 2025 5:16:58 PM UT Loinc Code Vital Sign Activity Date Result Updated By 8302-2 Body height May 21, 2025 2:35:52 PM UTC 160.66 cm (63.0 in) [id number] on May 21, 2025 2:35:[place] [address]-4 Body mass index (BMI ) [Ratio] May 21, 2025 2:35:52 PM UTC 34.209 kg/m2 [id number] on May 21, 2025 2:35:52 PM UT 3140-1 Body Surface Area Derived From Formula May 21, 2025 2:35:52 PM UTC 1.9173 m2 [id number] on May 21, 2025 2:35:52 PM UT 8310-5 Body temperature May 21 6:03:00 PM UTC 98.8 [degF] [id number] on May 21, 2025 6:05:39 [place] [address]-6 Body weight Measured May 21, 2025 2:35:52 PM UTC 88.3 kg (195.0 lb) [id number] on May 21, 2025 2:35:52 PM UT 8462-4 Diastolic blood pressure May 21, 2025 6:03:00 PM UTC 55.0 mm[Hg] [id number] on May 21, 2025 6:05:39 PM UT 8867-4 Heart rate May 21, 2025 6:03:00 PM UTC 81 /min [id number] on May 21, 2025 6:05:[place] [address]-0 Oxygen saturation in Arterial blood by Pulse oximetry May 21, 2025 6:03:00 PM UTC 95.0 % [id number] on May 21, 2025 6:05:39 PM UT 9279-1 Respiratory rate May 21 6:03:00 PM UTC 20 /min [id number] on May 21, 2025 6:05:39 PM UT 8480-6 Systolic blood pressure May 21, 2025 6:03:00 PM UTC 111.0 mm[Hg] [id number] on May 21, 2025 6:05:39 PM UT PEDIATRIC GROWTH CHART - VITAL SIGNS This section displays Head C ircumference Percentile, Weight for Length Percentile and BMI Percentile Loinc Code Pediatric Measure Age (Months) Result Updat ed By No Pediatric Growth Chart Pe rcentile Information Available. PROCEDURES PATIENT PROCEDURES CODE SYSTEM DESCRIPTION STATUS PERFORMED DATE UPD ATED BY [id number] SNOMED-CT LITHOTRIPSY EXTRACORPEAL SHOCK WAVE completed May 21, 2025 5:00:00 AM UT [id number] on May 21, 2025 5:06:29 PM UT [id number] SNOMED-CT CYSTOSCOPY REMOV E JJ STENT cancelled May 21, 2025 5:00:00 AM UTC [id number] on May 21, 2025 5:07:16 PM [facility] [id number] SNOMED-CT CYSTOSCOPY INSER TION STENT URETER cancelled May 21, 2025 5:00:00 AM UTC [id number] on May 21, 2025 5:07:43 PM UTC PROCEDURE NOTE Note Title Operative/Procedure Note Date Of Service May 21, 2025 5:4 9:24 PM UTC Created By [id number] on May 21, 2025 5:49:24 PM UTC Signed By [id number] on May 21, 2025 5:52:41 PM UT Pre-Procedure Diagnosis Kidney stone Post- Procedure Diagnosis Kidney stone Procedure / Surgery Performed LITHOTRIPSY EXTRACORPEAL SHOCK WAVE, LEFT left ESWL Performed by NIDHI VALLEJO MD Anesthesia Type General anesthesia Estimated Blood Loss 0 Complications None Indication Patient is 29-year-old white female status post left ureteral stent and stone manipulation one-week ago. She presents for left ESWL today. She was having some mild stent colic. We have discussed ESWL treatment and complications. Procedure Description / Findings Patient taken to the operating room after informed consent was obtained. She was placed on the operating table in the supine position and general anesthesia administered. Preoperative antibiotics and sequential compression devices placed. Patient was positioned and padded appropriately and the 17 mm lower pole stone was visualized easily on fluoroscopy. Three thousand shock waves delivered to the stone at a maximum energy level of 7 and rate of 120. There was breakage of the stone but it appeared to be a bit hard and a there was not a large cloud affect. Patient tolerated well. Specimens None Tubes/Drains None Implants None Disposition of Patient Stable to recovery room Discharged home when appropriate Return to office 1 week with a KUB. Postural drainage instructions given. Electronically signed by NIDHI VALLEJO MD on 1252 MEDICAL EQUIPMENT MEDICAL EQUIPMENT Device Status Quantity Dates Procedure Comments Updated By Rashaad ureteral stent SKYLAR: [id number]) [id number] Assigning Authority: [facility] Device Identifier:[id number] Lot or Batch Number:[id number] Expiration Date:2027-12-30 ACTIVE 1 Implanted: May 12, 2025 CYSTOSCOPY INSERTION STENT URETER [id number] on May 12, 2025 7:33:46 PM UT ENCOUNTERS ENCOUNTER INFORMATION Reason for Visit LEFT ESWL Admission May 21, 2025 2:02:[address] [address] Discharge May 21, 2025 10:02:00 PM [facility] DISCHARGED TO HOME OR SELF CARE ENCOUNTER DIAGNOSES Notes information is not jonathan ilable. Code System Diagnosis Onset Date Diagnosis information is not available. ABSTRACT DIAGNOSES Code System Diagnosis Updated By Abatement Date N20.0 ICD10 CALCULUS OF KIDNEY [id number] o n May 25, 2025 5:16:21 PM UT T83.84XA ICD10 PAIN DUE TO JUANITA TOURINARY PROSTHETIC DEVICES, IMPLANTS AND GRAFTS, INITIAL ENCOUNTER [id number] on May 25, 2025 5:16:21 PM UT N20.0 ICD10 CALCULUS OF KIDNEY [id number] o n May 25, 2025 5:16:21 PM UT T83.84XA ICD10 PAIN DUE TO JUANITA TOURINARY PROSTHETIC DEVICES, IMPLANTS AND GRAFTS, INITIAL ENCOUNTER [id number] on May 25, 2025 5:16:21 PM [facility] F17.210 ICD10 NICOTINE DEPENDE NCE, CIGARETTES, UNCOMPLICATED [id number] on May 25, 2025 5:16:21 PM [facility] CARE TEAM Care Paint Factory Worker Role CARLY BLAKE Primary Care YONI TERRELL Surgeon YONI TERRELL Referring YONI TERRELL Admitting YONI TERRELL Primary Attending CARE TEAM CARE chrome tanning drum operator Role on Team Location Telecom Status Start Date End Harvinder e Updated By LIO CHILDERS CRNA Healthcare professional [address] [place] [address], [phone] normal May 21, 2025 4:50:00 PM UTC May 21, 2025 10:02:00 PM UTC [id number] on May 21, 2025 5:44:51 PM UTC DAISY GALLEGOS CRNA Healthcare professional [address] [place] [address], [phone] normal May 21, 2025 5:20:00 PM UTC May 21, 2025 10:02:00 PM UTC [id number] on May 21, 2025 5:44:51 PM UTC NIDHI VALLEJO MD Surgeon [address] [place] [address], [phone] normal May 21, 2025 4:50:00 PM UTC May 21, 2025 10:02:00 PM UTC [id number] on May 21, 2025 5:44:51 PM UTC LOU Nugent PCP [address], [place], [address] normal May 21, 2025 2:07:36 PM UTC May 21, 2025 5:00:00 AM UTC [id number] on May 21, 2025 5:44:51 PM UTC UNKNOWN PUT NAME IN RN PCP PUT IN ADDRESS, PUT IN [place], [place], PUT IN normal May 13, 2025 7:26:50 PM UTC May 21, 2025 2:07:36 PM UTC [id number] on May 21, 2025 5:44:51 PM UTC NIDHI VALLEJO MD Referring [address] [place] [address], [phone] normal May 13, 2025 7:26:49 PM UTC May 21, 2025 5:00:00 AM UTC [id number] on May 21, 2025 5:44:51 PM UTC NIDHI VALLEJO MD Attending [address] [place] [address], [phone] normal May 13, 2025 7:26:49 PM UTC May 21, 2025 5:00:00 AM UTC [id number] on May 21, 2025 5:44:51 PM UTC NIDHI VALLEJO MD Admitting [address] [place] [address], [phone] normal May 13, 2025 7:26:49 PM UTC May 21, 2025 5:00:00 AM UTC [id number] on May 21, 2025 5:44:51 PM UTC INSURANCE PROVIDERS INSURANCE PROVIDER Coverage Status - Effective Date Coverage Type Payor Plan Order Relationship To Subscriber Insurance Plan No Insurance Plan 2111-07-16 W PRIMARY 18 [phone] [facility] AETN A BETTER HEALTH
--- OUTSIDE RECORDS SUMMARY | 2025-06-02 05:01 | XMS_ITS | Continuity of Care Document ---
Author Organization [facility] Phone Care Team Providers Care Waterproofing Mixer Name Role Phone YONI TERRELL Admitting YONI TERRELL Unavailable YONI TERRELL Primary Attending CARLY BLAKE Primary Care ALLERGIES AND ADVERSE REACTIONS ALLERGIES AND ADVERSE REACTIONS Code System Allergy Substance Adverse Reaction Date Reaction (Severity) Comment Status Reported By Updated By No Known Allergies [id number] on May 12, 2025 7:34:54 PM [facility] FAMILY HISTORY RELATION: Father Status: LIVING SNOMED-CT Diagnosis Age At Onset Information not available RELATION: Mother Status: LIVING SNOMED-CT Diagnosis Age At Onset Information not available RESULTS Patient: IAN ZHAO Date of : 1995 1 LABORATORY RESULTS Information is not available LABORATORY NARRATIVE RESULTS Information is not available RADIOLOGY RESULTS ORDER 100: ABD KUB 1V (LOINC : 85334-3) ORDER DATE: May 29, 2025 7:47:00 PM [facility] PERFORMING LAB: [address] [id number] Final Result Date: May 30, 2025 12:43:08 PM [facility] (TECH: [id number]) [address] [address] (Phone) IMAGING REPORT Name: PAVEL SOSA : 1995 Age: 29 Years Patient Type: Outpatient Sex: F Exam Description: ABD KUB 1V Exam Reason: n20.0 calculus of kidney Order Date/Time: 05/29/2025 03:01:20 PM Dictated By: Francis Cook MD Ordering Physician: YONI TERRELL Attending Physician: YONI TERRELL EXAM: XR ABDOMEN 1 VIEW (KUB) HISTORY: n20.0 calculus of kidney. COMPARISON: None. FINDINGS: 2 AP views of the abdomen demonstrates a nonobstructive bowel gas pattern. A left ureteral stent is in expected position. Several stones are again noted in the lower pole of the left kidney. No obvious stone is seen in the distribution of the stent. Small surgical clips are located in the right lower quadrant. Osseous structures are within normal limits. IMPRESSION: Left ureteral stent in expected position. Lower pole left renal calculi. Electronically signed by: Francis Cook MD 05/30/2025 07:43 AM EST Principal Briquette Maker PAGE 1 OF 2 Name: PAVEL SOSA : 1995 Age: 29 Years Patient Type: Outpatient Sex: F Exam Description: ABD KUB 1V Exam Reason: n20.0 calculus of kidney Order Date/Time: 05/29/2025 03:01:20 PM Name: Francis Cook Provider ID: [id number] PAGE 2 OF 2 PATHOLOGY NARRATIVE RESULTS Information is not available MICROBIOLOGY RESULTS No Micro Labs/Results Exist for Patient BLOOD ADMIN RESULTS Information is not available MEDICATIONS HOME MEDICATIONS Status RXNORM NDC Medication Dose Route Frequency Dates Comments Reported By Updated By Drug Treatment Unknown DISCHARGE MEDICATIONS Status RXNORM NDC Medication Dose Route Frequency Dates Dis pense Data Comments Physician Updated By No Discharge Medication Info rmation Available INPATIENT MEDICATIONS Status RXNORM NDC Medication Dose Route Frequency Rat e Quantity Dates Indication Dispense Data Comments Physician Updated By No Inpatient Medication Info rmation Available SOCIAL HISTORY SOCIAL HISTORY - Smoking Status SNOMED-CT Social History Element Description Effective Dates Offered Cessation Comment Updated By [id number] Historical Tobacco smoking status Current Every Day Smoker [id number] on May 11, 2025 4:47:27 PM [facility] SOCIAL HISTORY - Gender Sex: Female SOCIAL HISTORY - Status : status i nformation is not available Intention in Next Year: intention information is not available SOCIAL HISTORY - Assessments Code System Description Status Date Value of Assessment Updated By Comment Assessment Information is no t available SOCIAL HISTORY - [place] Affiliation [place] information is not av ailable SOCIAL HISTORY - Legal Sex Legal Sex : Female (finding) SOCIAL HISTORY - Sexual Behavior Sexual Orientation Gender Identity SNOMED-CT Description SNO MED -CT Description Activity Level No of Partners Partner Type UpdatedBy Information is not available SOCIAL HISTORY - Occupation Occupation information is no t available MEDICAL EQUIPMENT MEDICAL EQUIPMENT Device Status Quantity Dates Procedure Comments Updated By Polymeric ureteral stent SKYLAR: [id number]) [id number] Assigning Authority: [facility] Device Identifier:[id number] Lot or Batch Number:[id number] Expiration Date:2027-12-30 ACTIVE 1 Implanted: May 12, 2025 CYSTOSCOPY INSERTION STENT URETER [id number] on May 12, 2025 7:33:46 PM [facility] ENCOUNTERS ENCOUNTER INFORMATION Reason for Visit XRAY Admission May 29, 2025 7:42:[address] [address] Discharge May 29, 2025 11:42:00 PM [facility] DISCHARGED TO HOME OR SELF CARE ENCOUNTER DIAGNOSES Notes information is not jonathan ilable. Code System Diagnosis Onset Date Diagnosis information is not available. ABSTRACT DIAGNOSES Code System Diagnosis Updated By Abatement Date N20.0 ICD10 CALCULUS OF KIDNEY [id number] o n May 29, 2025 7:42:48 PM UTC N20.0 ICD10 CALCULUS OF KIDNEY [id number] o n June 02, 2025 10:00:24 AM UTC Z96.0 ICD10 PRESENCE OF UROG ENITAL IMPLANTS [id number] on June 02, 2025 10:00:58 AM UTC CARE TEAM Care Waterproofing Mixer Role YONI TERRELL Admitting YONI TERRELL Referring YONI TERRELL Primary Attending CARLY BLAKE Primary Care CARE TEAM CARE field installation technician Role on Team Location Telecom Status Start Date End Harvinder e Updated By LOU Nugent PCP [address], [place], [place], [address] normal May 29, 2025 7:42:48 PM UTC May 29, 2025 11:42:00 PM UTC [id number] on May 29, 2025 7:42:48 PM UTC NIDHI VALLEJO MD Referring [address] [place] [address], [address] normal May 29, 2025 7:42:48 PM UTC May 29, 2025 11:42:00 PM UTC [id number] on May 29, 2025 7:42:48 PM UTC NIDHI VALLEJO MD Attending [address] [place] [address], [phone] normal May 29, 2025 7:42:48 PM UTC May 29, 2025 11:42:00 PM UTC [id number] on May 29, 2025 7:42:48 PM UTC NIDHI VALLEJO MD Admitting [address] [place] [address], [id number] normal May 29, 2025 7:42:48 PM UTC May 29, 2025 11:42:00 PM UTC [id number] on May 29, 2025 7:42:48 PM UTC INSURANCE PROVIDERS INSURANCE PROVIDER Coverage Status - Effective Date Coverage Type Payor Plan Order Relationship To Subscriber Insurance Plan No Insurance Plan 2027-07-16 W PRIMARY 18 [id number] [facility] AETN A BETTER HEALTH
[2025-06-12 09:54] VITALS: BP 130/75; PULSE 77; RESP 20; TEMP 36.7; O2SAT 100; BMI 34.5
--- NOTE | 2025-06-12 10:06 | ED_ITS ---
Discharge Plan Disposition Patient Disposition: Home, Self-Care Prescriptions Prescriptions: New ondansetron 4 mg tablet,disintegrating 4 mg PO Q6H PRN (Reason: nausea and vomiting) Qty: 20 0RF tamsulosin 0.4 mg capsule 0.4 mg PO DAILY Qty: 7 0RF No Action Nexplanon 68 mg implant 68 mg SUBDERMAL NEEDED PRN (Reason: control) ibuprofen 800 mg tablet 800 mg PO Q8H PRN (Reason: pain) Qty: 20 0RF hydrocodone-acetaminophen 5-325 mg tablet 1 tab PO Q6H PRN (Reason: pain) Qty: 8 0RF Referrals Follow up/Referrals: Bentley Nieto MD [Primary Care Provider, Medical] - See instructions Activity Restrictions/Add. Instructions Additional Instructions/Restrictions: Your workup today shows some constipation. I do encourage you to take MiraLAX. You can take 2 capfuls daily if you do not have a bowel movement that day, you can double it each day following until you have a bowel movement. Your stools will likely become liquidy at this point and then I want you to back down to 1 capful of MiraLAX daily after that point. You are being prescribed Zofran to help with nausea. If you develop any new or worsening symptoms, or if you become concerned for your health for any reason, return to the emergency department for evaluation Clinical Impressions Clinical Impression: Nausea, Constipation Instructions Patient Instructions: DI for Diarrhea and Traveler's Diarrhea in Adults, DI for Diarrhea and Traveler's Diarrhea in Children, DI for Nausea in Adults, DI for Nausea in Children Print Language Print Language: [place] Discharge ED Provider: Miguel Heredia Adult HPI General Chief complaint: Nausea/Vomiting/Diarrhea Stated complaint: nausea Time Seen by Provider: 06/12/25 10:01 Mode of Arrival: Ambulatory Source of Information: Patient Description of Symptoms (Recalled from ER Triage Doc. by RN): pt had a recent tubal surgery on sunday with dr sy and hasnt had a good bowel mvmt since then, today patient is nauseated but cannot throw up, pt had two tylenol before coming to er History of Present Illness HPI narrative: Ai Sanford is a 30y female with a history of appendectomy, D&C, status post left salpingectomy and clamping of right fallopian tube on 06/04/2025 who presents to the emergency department for complaints of nausea and dry heaving as well as constipation. Patient states that since her surgery, she has not had a good bowel movement. She reports that this morning, she started having nausea and dry heaving without vomiting. She denies any chest pain or shortness of breath. She denies any urinary symptoms or fever. She denies any other recent sick contacts. She does not believe that she ate anything out of the ordinary. Related Data Home Medications ?Medication ?Instructions ?Recorded ?Confirmed etonogestrel 68 mg subdermal 68 mg subdermal NEEDED PRN 12/09/19 06/08/25 implant (Nexplanon) control Previous Rx's ?Medication ?Instructions ?Recorded hydrocodone 5 mg-acetaminophen 325 1 tab PO Q6H PRN pa in #8 tabs 06/08/25 mg tablet ibuprofen 800 mg tablet 800 mg PO Q8H PRN pain #20 t abs 06/08/25 ondansetron 4 mg disintegrating 4 mg PO Q6H PRN nausea and 06/12/25 tablet vomiting #20 tabs tamsulosin 0.4 mg capsule 0.4 mg PO DAILY #7 caps 05/17 03/09 Allergies Allergy/AdvReac Type Severity Reaction Status Date / Time No Known Allergies Allergy Verified 06/08/25 08:03 [facility] Disclaimer: The information contained in this section may have been updated after the patient was seen, as this information can be updated by other users. Medical History Incontinence in female Encounter for preoperative assessment Flank pain Urinary tract infection symptoms Request for sterilization Vulvar lesion Acute pelvic pain, female Abdominal pain, acute Surgical History H/O placement of ureteral stent [place] teeth extracted History of D&C History of placement of ear tubes H/O elbow surgery Hx of appendectomy Family History Father Hypertension Social History Smoking Status: Current every day smoker tobacco type: cigarettes packs per day: 1 second hand exposure: Yes alcohol intake: never substance use type: denies use current occupational status: employed Travel in the last 8 weeks?: None housing: house Have you lived/traveled outside [place] in past 30 days?: No Contact w/someone who lives/traveled outside US past 30 days?: No Exposure to someone with infectious disease in past 14 days?: No Do you have a fever (greater than 100.4 F or 38 C)?: No Have you tested positive for COVID-19?: No Exposed to someone with COVID-19 in past 14 days?: No Do you have a sore throat?: No Do you have a cough?: No Do you have any weakness?: No Do you have any diarrhea?: No Are you experiencing any unusual bleeding?: No Do you have any muscle aches/pain?: No Do you have any abdominal pain?: No Are you experiencing loss of taste or smell?: No Other Medical History Have you received the Flu Vaccine for this season: No Have you received the Pneumonia Vaccine: No ROS Obtained: Yes Systems reviewed as appropriate & no additional complaints except as documented Physical Exam General General appearance: alert and in no apparent distress Head Head exam: atraumatic Eye Eye exam: Present normal appearance ENT ENT exam: Present normal external ear exam Neck Neck exam: Present full ROM Chest Chest inspection: Present symmetric chest wall rise Respiratory Respiratory exam: Present normal lung sounds bilaterally; Absent respiratory distress Cardiovascular Cardiovascular exam: Present regular rate and normal rhythm Abdominal Exam Abdominal exam: Present soft and tenderness (mild tenderness over laparoscopic sites, however they appear to be healing well without erythema,swelling or drainage. No tenderness in the upper abdomen no ); Absent distention, guarding or rigidity Extremities Exam Extremities exam: Present normal inspection Back Exam Back exam: Present normal inspection Neurological Exam Neurological exam: Present alert and oriented X3 Psychiatric Psychiatric exam: Present normal affect Skin Skin exam: Present warm and dry Medical Decision Making Medical Records Screening: Per USPSTF and CDC recommendations, given the prevalence of disease in our region, it is our hospital?s policy to screen for HIV and viral Hepatitis for all patients aged 18 and over and those with ongoing risk factors. Markos Inquiry Pt receiving controlled substance: No Vital Signs: 06/12/25 09:54 06/12/25 11:31 Temperature 98.1 F 98.4 F Temperature Source Oral Oral Pulse Rate 70 Pulse Rate [Left Radial] 77 Respiratory Rate 20 20 Blood Pressure 138/79 Blood Pressure [Right Arm] 130/75 Blood Pressure Mean [Right Arm] 93 02 Sat by Pulse Oximetry 100 Oxygen Delivery Method Room Air Room Air Lab Data Lab Results 06/12/25 10:09: Urine HCG, Qual Negative 06/12/25 10:12: Urine Color Red, Urine Appearance Turbid, Urine pH 7.0, Ur Specific [place] 1.025, Urine Protein 2+ A, Urine Glucose (UA) Negative, Urine Ketones Negative, Urine Blood 3+ A, Urine Nitrate Negative, Urine Bilirubin Negative, Urine Urobilinogen 0.2, Ur Leukocyte Esterase Negative, Urine RBC Tntc, Urine WBC None, Ur Squamous Epith Cells Occasional, Urine Bacteria None 06/12/25 10:20: WBC 13.3 H, RBC 4.63, Hgb 13.9, Hct 41.5, MCV 89.6, MCH 30.0, MCHC 33.5, RDW 12.8, Plt Count 274, MPV 9.4, Neut % (Auto) 75.0, Lymph % (Auto) 16.0, [place] % (Auto) 5.9, Eos % (Auto) 2.6, Baso % (Auto) 0.3, Neut # (Auto) 10.0 H, Lymph # (Auto) 2.1, [place] # (Auto) 0.8, Eos # (Auto) 0.4, Baso # (Auto) 0.0, Sodium 136, Potassium 3.9, Chloride 104, Carbon Dioxide 26, Anion Gap 9.9, BUN 15, Creatinine 0.70, Estimated Creat Clear 163, Estimated GFR 98, Est GFR ( Amer) 118, Glucose 103 H, Calcium 9.0, Total Bilirubin 0.5, AST 22, ALT 20, Alkaline Phosphatase 60, Total Protein 7.2, Albumin 4.4, Globulin 2.8, Albumin/Globulin Ratio 1.6, Lipase 61 06/12/25 10:20 06/12/25 10:20 Orders (Tests/Meds): ED MEDICATIONS Discontinued Medications Generic Name Dose Route Start Last Admin Trade Name Freq PRN Reason Stop Dose Admin Ondansetron HCl 4 mg 06/12/25 10:05 06/12/25 10:20 Ondansetron 4mg/2ml Vial IV 06/12/25 10:06 4 mg ONCE ONE Administration ORDERS Category Date Time Status KUB (single view) [XR KUB] Stat Exams 06/12/25 10:11 Completed CBC w/Auto Diff [Complete Blood Count Auto Diff] Stat Lab 06/12/25 10:20 Completed CMP [Comprehensive Metabolic Panel] Stat Lab 06/12/25 10:20 Completed Lipase Stat Lab 06/12/25 10:20 Completed UA [Urinalysis and Microscopic] Stat Lab 06/12/25 10:12 Completed Urine , HCG Qual. Stat Lab 06/12/25 10:09 Completed Medical Decision Narrative: Ai Sanford is a 30y female with a history of appendectomy, D&C, status post left salpingectomy and clamping of right fallopian tube on 06/04/2025 who presents to the emergency department for complaints of nausea and dry heaving as well as constipation. Patient states that since her surgery, she has not had a good bowel movement. She reports that this morning, she started having nausea and dry heaving without vomiting. She denies any chest pain or shortness of breath. She denies any urinary symptoms or fever. She denies any other recent sick contacts. She does not believe that she ate anything out of the ordinary. On arrival, patient is hemodynamically stable, afebrile, breathing comfortably on room air with appropriate saturation. Physical exam, stated above, revealed nontoxic-appearing female in no distress. She has some mild tenderness over her laparoscopic sites on the lower abdomen, however these appear to be healing well. She has bruising in multiple stages of healing. No tenderness or distention or peritonitis otherwise. Cardiopulmonary exam is unremarkable. Differential diagnosis includes, but is not limited to: Constipation, acute pancreatitis, acute cholecystitis, gastritis, among others. The most morbid conditions were considered and workup was based on these. Will obtain hematologic labs, urine studies. CT abdomen pelvis with IV contrast was considered, however we will obtain KUB to evaluate for stool burden/air-fluid levels to rule out bowel obstruction. Patient ministered 4 mg of IV Zofran. Patient's urine shows TNTC RBCs, and patient believes she may be starting her period today, but no evidence of infection with no WBC, negative leukocyte esterase, and negative nitrate. Negative test. Labs otherwise show persistent leukocytosis of 13.3 without neutrophilia. Electrolytes and kidney function within normal limits. Liver enzymes and bilirubin within normal limits. Lipase normal at 61. KUB on my interpretation prior to official radiology read shows moderate stool burden but no air-fluid levels to suggest bowel obstruction. On reassessment, patient is feeling better and has not had recurrence of her vomiting. I do feel that her symptomatology could be explained by constipation given she is on Lortab and with her recent surgery. Recommended she take MiraLAX to help with bowel movements. Will discharge patient with prescription for Zofran. Return precautions were given. All questions were answered. She demonstrated understanding and was in agreement this plan. She was then discharged from the emergency department in stable condition. After discharge, patient's KUB radiology interpretation showed moderate stool burden and multiple calcifications projecting over the left kidney that are likely stones and a possible left ureteral stone given there is a left paraspinal calcification just inferior to the L2 transverse process. I did call patient at approximately 1815 to discuss these results. It is likely that she has a ureteral stone that explains her hematuria, but again there is no evidence of an infected kidney stone. She states that she has known kidney stones she stated that she still having some pain and nausea but it has not worsened. I explained the results of her imaging and that this could be from a kidney stone. She states that she is aware already that she has kidney stones. Will call in Flomax to help patient pass the stone but did give patient strict return precautions that if she develops any fever, worsening pain, flank pain or uncontrolled symptoms to return to the emergency department. Critical Care Critical Care Time Critical Care Time: No
--- NOTE | 2025-06-12 10:11 | XR_ITS ---
FINAL REPORT CLINICAL HISTORY: Constipation, recent surgery recent tubal on 06/08/25 hasnt had a bowel movement since sunday prior to surgery COMPARISON: CT abdomen and pelvis dated 05/16/2025 FINDINGS: A single supine view of the abdomen was obtained. The bowel gas pattern is nonspecific but nonobstructive with a moderate amount of stool. There are gallstones in the right upper quadrant. There are multiple calcifications projecting over the region of the left kidney which are likely multiple renal stones. On a recent CT, there was a large stone at this location. A left paraspinal calcification just inferior to the left L2 transverse process could be a ureteral stone. There are tubal ligation clips in the pelvis. There is no acute osseous abnormality. IMPRESSION: Moderate stool. Presumed recent lithotripsy with multiple calcifications projecting over the left kidney that are likely stones. Possible left ureteral stone. Reviewed, Interpreted and Dictated by Tasha Ahuja MD Transcribed by Mariann Concepcion Authenticated and [facility]
[2025-06-12 10:15] LABS: Microscopic, Urine URINE MICROSCOPIC (MICROSCOPIC)
[2025-06-12 10:20] LABS: Urine Pregnancy, HCG Qual. Negative (Negative)
[2025-06-12] MEDS: ONDANSETRON 4MG/2ML VIAL 4 MG IV (10:20)
[2025-06-12 10:26] LABS: Hematocrit 41.5 % (37.0-47.0); Hemoglobin 13.9 g/dL (12.2-16.2); Immature Granulocytes % 0.2 %; Mean Corpuscular HGB Conc 33.5 g/dL (31.8-35.4); Mean Corpuscular Hemoglobin 30.0 pg (27.0-31.2); Mean Corpuscular Volume 89.6 fl (81-99); Nucleated Red Blood Cells % 0 %; Platelet Count 274 K/mm3 (142-424); Red Blood Count 4.63 M/mm3 (4.20-5.40); Red Cell Distribution Width-SD 41.8 fL; White Blood Count 13.3 K/mm3 (4.8-10.8)
[2025-06-12 10:34] LABS: Bilirubin,Urine Negative (Negative); Color,Urine RED (Yellow); Glucose,Urine (UA) Negative (Negative); Ketones,Urine Negative (Negative); Leukocyte Esterase,Urine Negative (Negative); PH,Urine 7.0 (5.0-8.5); Protein,Urine 2+ (Negative); Specific Gravity, Urine 1.025 (1.005-1.030); Urobilinogen,Urine 0.2 EU/dl (0.2)
[2025-06-12 10:35] LABS: Alanine Aminotransferase 20 U/L (12-78); Albumin Level 4.4 g/dl (3.5-5.0); Albumin/Globulin Ratio 1.6 (1.1-1.8); Alkaline Phosphatase 60 U/L (38-126); Anion Gap 9.9 mEq/L (5-15); Aspartate Amino Transferase 22 U/L (14-36); Bilirubin,Total 0.5 mg/dl (0.2-1.3); Blood Urea Nitrogen 15 mg/dl (7-17); Calcium 9.0 mg/dl (8.4-10.2); Carbon Dioxide 26 mmol/L (22.0-30.0); Chloride 104 mmol/L (98-107); Creatinine Clearance Estimated 163 mL/min (50-200); Creatinine,Serum 0.70 mg/dl (0.52-1.04); Estimated Glomerular Filt Rate 98 ml/min (>60); GFR (African American) 118 ML/MIN (>60); Globulin 2.8 g/dL (1.3-3.2); Glucose 103 mg/dl (74-100); Lipase 61 U/L (23-300); Potassium 3.9 mmoL/L (3.5-5.1); Sodium 136 mmol/L (136-145); Total Protein,Serum 7.2 g/dl (6.3-8.2)
[2025-06-12 10:37] LABS: RBC,Urine TNTC #/hpf (0-3); Squamous Epithelial Cell,Urine Occasional #/hpf (0-5)
[2025-06-12 11:31] VITALS: BP 138/79; PULSE 70; RESP 20; TEMP 36.9; O2SAT 98
== END 2025-06-12 11:32 | disposition home or self-care (01) ==
PROVIDERS: Emergency Provider Student in an Organized Health Care Education/Training Program; PCP Family Medicine
DX: R10.A3 Flank pain, bilateral (principal); R11.0 Nausea; K59.00 Constipation, unspecified; F17.210 Nicotine dependence, cigarettes, uncomplicated; Z87.442 Personal history of urinary calculi
CPT/HCPCS: 74018; 80053; 81001; 81025; 83690; 85025; 96374; 99284; J2405